=== PATIENT | female | born 1975 | race Caucasian/White ===

== ENCOUNTER → 2016-03-17 | Outpatient (CLI) | payer BC ==
--- NOTE | 2016-03-17 11:08 | MM ---
Reason for exam: clinical finding. Last mammogram was performed 1 year and 3 months ago. Physical Findings: Nurse did not find any significant physical abnormalities on exam. MG Diagnostic Mammo w CAD CHERELLE Bilateral CC and MLO view(s) were taken. Prior study comparison: December 23, 2014, bilateral MG screening mammo w CAD. July 21, 2013, bilateral MG screening mammo w CAD. There are scattered fibroglandular densities. There is no discrete abnormality including area of concern. Stable asymmetry in the upper outer right breast. No significant new findings when compared with previous films. These results were verbally communicated with the patient and result sheet given to the patient on 03/17/16. ASSESSMENT: Benign, BI-RAD 2 RECOMMENDATION: Routine screening mammogram of both breasts in 1 year. Manage patient on a clinical basis.
== END ==
LOC: RADMAMWWP 10:18
PROVIDERS: ATTEND Internal Medicine
DX: N63 Unspecified lump in breast (principal)

== ENCOUNTER → 2018-09-24 | Outpatient (CLI) | payer BC ==
[2018-09-24 10:21] VITALS: BP 126/83; PULSE 69; RESP 18; TEMP 98.2; BMI 45.5
--- NOTE | 2018-09-24 11:22 | P.HPOB ---
History of Present Illness H&P Date: 09/24/18 Chief Complaint: The patient is here for her routine gynecologic exam and ma mmogram. This is a 43-year-old G3 PIII with an LMP of 08/22/2018. The patient's 's status post vasectomy. The patient states she had the gynecologic exam with pelvic exam was done at Dr. Piper's office about year ago. She was told she had a positive HPV test. She was advised to have this repeated in 6 months. She is uncertain as to the results of the Pap smear testing which she believes was done. She is otherwise without gynecologic complaints. She states her only sexual partner has been her and she has been since 1991. She does not believe there is any chance that he has been unfaithful. She would like to be retested for HPV. Menses are regular every month. Review of Systems The patient's weight has been stable over the last year. She denies respiratory, cardiac, or G.I. problems. Past Medical History Past Medical History: No Reported History, Thyroid Disorder Additional Past Medical History / Comment(s): Hypothyroidism and water retention. 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 She has no other history of STDs. History of Any Multi-Drug Resistant Organisms: None Reported Past Surgical History: Cholecystectomy, Orthopedic Surgery Additional Past Surgical History / Comment(s): Knee surgery. 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 - Past Family History Mother Family Medical History: Diabetes Mellitus Additional Family Medical History / Comment(s): Maternal grandfather had diabetes. Medications and Allergies Home Medications Medication Instructions Recorded Confirmed Type Hydrochlorothiazide [Hydrodiuril] 25 mg PO DAILY 06/08/14 09/24/18 History Biotin 10,000 mcg PO DAILY 09/24/18 09/24/18 History Multivitamin [Multivitamins Adult 1 each PO DAILY 09/24/18 09/24/18 History Gummies] Thyroid, Pork [[place] Thyroid] 30 mg PO DAILY 09/24/18 09/24/18 History Allergies Allergy/AdvReac Type Severity Reaction Status Date / Time Penicillins Allergy Anaphylaxis Unverified 09/24/18 10:14 Exam Vital Signs Temp Pulse Resp BP Pulse Ox 09/24/18 10:15 98.2 F 69 18 126/83 97 Intake and Output 09/23/18 09/24/18 09/24/18 22:59 06:59 14:59 Other: Weight 127.913 kg Height 5'6", weight 282 pounds, BMI 45.5. This is a well-developed well-nourished obese white female who is alert and oriented times 3 in no acute distress. HEENT: Within normal limits. NECK: Supple without mass or thyromegaly. CHEST AND LUNGS: Clear to auscultation. HEART: Regular rate and rhythm. BREASTS: Are without mass or discharge. AXILLARY EXAM: Negative for adenopathy. BACK: Negative for CVA tenderness. ABDOMEN: Soft, obese, nontender, without palpable masses. PELVIC EXAM: Normal external genitalia. Cervix and vagina appear normal. There is no unusual discharge. There is no evidence of prolapse. The uterus is midposition, nongravid size and nontender. There are no palpable adnexal masses or tenderness. Bimanual examination is somewhat limited secondary to her size. RECTAL EXAM: refused by the patient. EXTREMITIES: Nontender. IMPRESSION: 1. 43-year-old female with normal gynecologic exam. 2. Previous history of positive HPV testing in the last year. 3. Incomplete database. I was unable to obtain her last Pap smear and HPV test results from Dr. Piper's office because the telephone lines were down and we have gotten the constant busy signal. PLAN: 1. Pap smear co-test was obtained. We will continue to try to get her last Pap smear and HPV test results from Dr. Piper's office. If her last Pap smear was one year ago and co-test was performed with normal cytology and positive high- risk HPV, the appropriate follow-up would be to repeat this after one year. If I find out that the cytology was ASCUS or greater, she may need a colposcopic examination regardless of today's finding. 2. Self breast awareness was discussed with the patient. 3. Greening mammogram will be done today. 4. She was advised to return in one year for her annual well woman exam.
--- NOTE | 2018-09-25 12:17 | MM ---
Reason for exam: screening (asymptomatic). Last mammogram was performed 2 years and 6 months ago. Physical Findings: A clinical breast exam by your physician is recommended on an annual basis and results should be correlated with mammographic findings. MG Screening Mammo w CAD Bilateral CC and MLO view(s) were taken. Prior study comparison: March 17, 2016, bilateral MG diagnostic mammo w CAD CHERELLE. December 23, 2014, bilateral MG screening mammo w CAD. There are scattered fibroglandular densities. There is chronic nodularity in the left breast. There is no discrete abnormality. ASSESSMENT: Negative, BI-RAD 1 RECOMMENDATION: Routine screening mammogram of both breasts in 1 year.
== END | disposition home or self-care (01) ==
LOC: WWCWWP 09:52
PROVIDERS: ATTEND Obstetrics & Gynecology
DX: Z12.31 Encounter for screening mammogram for malignant neoplasm of breast (principal)
CPT/HCPCS: 77067

== ENCOUNTER 2019-11-09 00:08 | Emergency (ER) | payer BC ==
[2019-11-09 00:17] VITALS: BP 155/85; PULSE 94; RESP 16; TEMP 97.9
--- NOTE | 2019-11-09 01:05 | ED ---
Abdominal Pain HPI - General Chief Complaint: Abdominal Pain Stated Complaint: LT flank pain/abdominal pain Time Seen by Provider: 11/09/19 00:34 Source: patient Mode of arrival: ambulatory Limitations: no limitations - History of Present Illness Complaint: abdominal pain Onset/Timin -: month(s) Location: [facility] Radiation: L flank Migration to: no migration Severity: severe Quality: cramping, sharp Consistency: intermittent Improves With: nothing Worsens With: eating, other (palpation) Associated Symptoms: denies other symptoms - Related Data Home Medications Medication Instructions Recorded Confirmed hydroCHLOROthiazide [Hydrodiuril] 25 mg PO DAILY 06/08/14 09/24/18 Biotin 10,000 mcg PO DAILY 09/24/18 09/24/18 Multivitamin [Multivitamins Adult 1 each PO DAILY 09/24/18 09/24/18 Gummies] Thyroid, Pork [[place] Thyroid] 30 mg PO DAILY 09/24/18 09/24/18 Previous Rx's Medication Instructions Recorded Famotidine [Pepcid] 20 mg PO BID #14 tablet 11/09/19 Allergies Allergy/AdvReac Type Severity Reaction Status Date / Time Penicillins Allergy Anaphylaxis Verified 11/09/19 00:17 Review of Systems ROS Statement: Those systems with pertinent positive or pertinent negative responses have been documented in the HPI. ROS Other: All systems not noted in ROS Statement are negative. Constitutional: Denies: fever, chills Respiratory: Denies: cough, dyspnea Cardiovascular: Denies: chest pain, palpitations Gastrointestinal: Reports: as per HPI, abdominal pain, nausea, diarrhea. Denies: vomiting, constipation, melena, hematochezia Genitourinary: Denies: dysuria, frequency, hematuria Musculoskeletal: Reports: as per HPI, back pain Skin: Denies: rash Neurological: Denies: headache, weakness Past Medical History Past Medical History: Thyroid Disorder Additional Past Medical History / Comment(s): water retention. 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 She has no other history of STDs. History of Any Multi-Drug Resistant Organisms: None Reported Past Surgical History: Cholecystectomy, Orthopedic Surgery Additional Past Surgical History / Comment(s): Knee surgery. Past Psychological History: No Psychological Hx Reported Smoking Status: Current every day smoker Past Alcohol Use History: None Reported Past Drug Use History: None Reported - Past Family History Mother Family Medical History: Diabetes Mellitus Additional Family Medical History / Comment(s): Maternal grandfather had diabetes. General Exam Limitations: no limitations General appearance: alert, in no apparent distress Head exam: Present: atraumatic, normocephalic Eye exam: Present: normal appearance. Absent: scleral icterus, conjunctival injection Respiratory exam: Present: normal lung sounds bilaterally. Absent: respiratory distress, wheezes, rales, rhonchi, stridor Cardiovascular Exam: Present: regular rate, normal rhythm, normal heart sounds. Absent: systolic murmur, diastolic murmur, rubs, gallop GI/Abdominal exam: Present: soft, tenderness, normal bowel sounds. Absent: distended, guarding, rebound, rigid, mass, pulsatile mass, hernia Extremities exam: Present: normal inspection, normal capillary refill. Absent: pedal edema, calf tenderness Back exam: Present: normal inspection. Absent: CVA tenderness (R), CVA tenderness (L) Neurological exam: Present: alert Skin exam: Present: warm, dry, intact, normal color. Absent: rash Course Vital Signs 11/09/19 00:13 Temperature 97.9 F Pulse Rate 94 Respiratory 16 Rate Blood Pressure 155/85 O2 Sat by Pulse 100 Oximetry Medical Decision Making - Lab Data Result diagrams: 11/09/19 01:31 11/09/19 01:31 Lab Results 11/09/19 11/09/19 11/09/19 Range/Units 01:31 01:31 01:31 WBC 10.8 H (3.8-10.6) k/uL RBC 4.85 (3.80-5.40) m/uL Hgb 14.8 (11.4-16.0) gm/dL Hct 44.8 (34.0-46.0) % MCV 92.5 (80.0-100.0) fL MCH 30.5 (25.0-35.0) pg MCHC 33.0 (31.0-37.0) g/dL RDW 12.6 (11.5-15.5) % Plt Count 259 (150-450) k/uL Neutrophils % 56 % Lymphocytes % 32 % Monocytes % 6 % Eosinophils % 2 % Basophils % 1 % Neutrophils # 6.1 (1.3-7.7) k/uL Lymphocytes # 3.4 (1.0-4.8) k/uL Monocytes # 0.6 (0-1.0) k/uL Eosinophils # 0.2 (0-0.7) k/uL Basophils # 0.1 (0-0.2) k/uL Sodium 136 L (137-145) mmol/L Potassium 3.7 (3.5-5.1) mmol/L Chloride 105 (98-107) mmol/L Carbon Dioxide 26 (22-30) mmol/L Anion Gap 5 mmol/L BUN 20 H (7-17) mg/dL Creatinine 0.69 (0.52-1.04) mg/dL Est GFR (CKD-EPI)AfAm >90 (>60 ml/min/1.73 sqM) Est GFR (CKD-EPI)NonAf >90 (>60 ml/min/1.73 sqM) Glucose 103 H (74-99) mg/dL Plasma Lactic Acid Tam (0.7-2.0) mmol/L Calcium 10.4 H (8.4-10.2) mg/dL Total Bilirubin 0.3 (0.2-1.3) mg/dL AST 23 (14-36) U/L ALT 28 (4-34) U/L Alkaline Phosphatase 131 H (38-126) U/L Total Protein 6.3 (6.3-8.2) g/dL Albumin 3.6 (3.5-5.0) g/dL Amylase <30 L (30-110) U/L Lipase 68 (23-300) U/L Urine Color Yellow Urine Appearance Clear (Clear) Urine pH 5.5 (5.0-8.0) Ur Specific [place] 1.028 (1.001-1.035) Urine Protein Negative (Negative) Urine Glucose (UA) Negative (Negative) Urine Ketones Negative (Negative) Urine Blood Negative (Negative) Urine Nitrite Negative (Negative) Urine Bilirubin Negative (Negative) Urine Urobilinogen <2.0 (<2.0) mg/dL Ur Leukocyte Esterase Negative (Negative) 11/09/19 Range/Units 01:31 WBC (3.8-10.6) k/uL RBC (3.80-5.40) m/uL Hgb (11.4-16.0) gm/dL Hct (34.0-46.0) % MCV (80.0-100.0) fL MCH (25.0-35.0) pg MCHC (31.0-37.0) g/dL RDW (11.5-15.5) % Plt Count (150-450) k/uL Neutrophils % % Lymphocytes % % Monocytes % % Eosinophils % % Basophils % % Neutrophils # (1.3-7.7) k/uL Lymphocytes # (1.0-4.8) k/uL Monocytes # (0-1.0) k/uL Eosinophils # (0-0.7) k/uL Basophils # (0-0.2) k/uL Sodium (137-145) mmol/L Potassium (3.5-5.1) mmol/L Chloride (98-107) mmol/L Carbon Dioxide (22-30) mmol/L Anion Gap mmol/L BUN (7-17) mg/dL Creatinine (0.52-1.04) mg/dL Est GFR (CKD-EPI)AfAm (>60 ml/min/1.73 sqM) Est GFR (CKD-EPI)NonAf (>60 ml/min/1.73 sqM) Glucose (74-99) mg/dL Plasma Lactic Acid Tam 1.2 (0.7-2.0) mmol/L Calcium (8.4-10.2) mg/dL Total Bilirubin (0.2-1.3) mg/dL AST (14-36) U/L ALT (4-34) U/L Alkaline Phosphatase (38-126) U/L Total Protein (6.3-8.2) g/dL Albumin (3.5-5.0) g/dL Amylase (30-110) U/L Lipase (23-300) U/L Urine Color Urine Appearance (Clear) Urine pH (5.0-8.0) Ur Specific [place] (1.001-1.035) Urine Protein (Negative) Urine Glucose (UA) (Negative) Urine Ketones (Negative) Urine Blood (Negative) Urine Nitrite (Negative) Urine Bilirubin (Negative) Urine Urobilinogen (<2.0) mg/dL Ur Leukocyte Esterase (Negative) Disposition Clinical Impression: Abdominal pain Disposition: HOME SELF-CARE Condition: Good Instructions (If sedation given, give patient instructions): Abdominal Pain (ED) Prescriptions: Famotidine [Pepcid] 20 mg PO BID #14 tablet Is patient prescribed a controlled substance at d/c from ED?: No Referrals: Jei Piper MD [Primary Care Provider] - 1-2 days
[2019-11-09 01:42] LABS: Basophils # (A) 0.1 k/uL (0-0.2); Basophils % (A) 1 %; Eosinophils # (A) 0.2 k/uL (0-0.7); Eosinophils % (A) 2 %; HCT 44.8 % (34.0-46.0); HGB 14.8 gm/dL (11.4-16.0); Lymphocytes # (A) 3.4 k/uL (1.0-4.8); Lymphocytes % (A) 32 %; MCH 30.5 pg (25.0-35.0); MCV 92.5 fL (80.0-100.0); Mean Platelet Volume 7.6; Monocytes # (A) 0.6 k/uL (0-1.0); Monocytes % (A) 6 %; Neutrophils # (A) 6.1 k/uL (1.3-7.7); Neutrophils % (A) 56 %; Platelet Count 259 k/uL (150-450); RBC 4.85 m/uL (3.80-5.40); RDW 12.6 % (11.5-15.5); WBC 10.8 k/uL (3.8-10.6)
[2019-11-09 01:53] LABS: Appearance,Urine Clear (Clear); Bilirubin,Urine Negative (Negative); Blood,Urine Negative (Negative); Color,Urine Yellow; Glucose,Urine (UA) Negative (Negative); Ketones,Urine Negative (Negative); Leukocyte Esterase,Urine Negative (Negative); Nitrite,Urine Negative (Negative); PH, Urine 5.5 (5.0-8.0); Protein,Urine Negative (Negative); Specific Gravity,Urine 1.028 (1.001-1.035); Urobilinogen,Urine <2.0 mg/dL (<2.0)
--- NOTE | 2019-11-09 02:07 | CT ---
EXAMINATION TYPE: CT abdomen pelvis wo con DATE OF EXAM: 11/09/2019 COMPARISON: None HISTORY: left flank pain ,hx of cholecystectomy CT DLP: 2086 mGycm Automated exposure control for dose reduction was used. Lung bases are clear. There is no pleural effusion. Heart appears fairly normal. There is no pericard ial effusion. Stomach is intact. Liver spleen pancreas appear normal. There are clips from cholecyste ctomy. The bile ducts are not dilated. There is no adrenal mass. Kidneys have normal size. There is no hydronephrosis. Ureters are not dilat ed. There is no retroperitoneal adenopathy. Bladder is almost empty. Uterus is anteverted. There is n o free fluid in the pelvis. There is no inguinal hernia. There is no free fluid in the pelvis. There is no sign of a pelvic mass. The appendix is inferior and appears normal. There are a few pericecal lymph nodes measuring less than 1 cm. There is no mesenteric edema. There is no ascites or free air. There is no bowel obstruction. There i s L5 spondylolysis. There is no significant spondylolisthesis. There is no lumbar compression fractur e. Bony pelvis is intact. The hip joints are intact. There is no evidence of hip dysplasia. There is broad-based umbilical 3 x 2 cm hernia that contains fat. There are a few colonic diverticula without sign of diverticulitis. IMPRESSION: No sign of acute abdomen and pelvis. Umbilical hernia contains fat. Normal appendix. I do not see a c ause for left upper quadrant pain.
[2019-11-09 02:09] LABS: ALT 28 U/L (4-34); AST 23 U/L (14-36); African American GFR (CKD) >90 (>60 ml/min/1.73 sqM); Albumin 3.6 g/dL (3.5-5.0); Alkaline Phosphatase 131 U/L (38-126); Amylase <30 U/L (30-110); Anion Gap 5 mmol/L; Blood Urea Nitrogen 20 mg/dL (7-17); Calcium 10.4 mg/dL (8.4-10.2); Carbon Dioxide 26 mmol/L (22-30); Chloride 105 mmol/L (98-107); Glucose 103 mg/dL (74-99); Non-African American GFR(CKD) >90 (>60 ml/min/1.73 sqM); Potassium 3.7 mmol/L (3.5-5.1); Sodium 136 mmol/L (137-145); Total Bilirubin 0.3 mg/dL (0.2-1.3); Total Protein 6.3 g/dL (6.3-8.2)
[2019-11-09] MEDS ORDERED: DICYCLOMINE 20 MG TAB PO STA (02:16)
[2019-11-09] MEDS ORDERED: MAG HYDROX/AL HYDROX/SIMETH 30 ML, HYOSCYAMINE ELIXIR 10 ML, LIDOCAINE VISCOUS 2% 10 ML PO STA ×3 (02:16)
== END 2019-11-09 03:10 | disposition home or self-care (01) ==
LOC: EC 00:08
DX: R10.11 Right upper quadrant pain (principal); R11.0 Nausea; R19.7 Diarrhea, unspecified; E07.9 Disorder of thyroid, unspecified; F17.200 Nicotine dependence, unspecified, uncomplicated; Z79.890 Hormone replacement therapy; Z88.0 Allergy status to penicillin; Z90.49 Acquired absence of other specified parts of digestive tract
CPT/HCPCS: 36415; 74176; 80053; 81003; 82150; 83605; 83690; 85025; 99284

== ENCOUNTER → 2019-12-09 | Outpatient (CLI) | payer BC ==
[2019-12-09 12:57] VITALS: BP 119/85; PULSE 77; RESP 16; TEMP 98.2
--- NOTE | 2019-12-09 13:52 | P.HPOB ---
History of Present Illness H&P Date: 12/09/19 Chief Complaint: The patient is here for her routine gynecologic exam and ma mmogram. This is a 44-year-old with an LMP of 11/24/2019. The patient is without gynecologic complaints. Menses are regular every month. She was in the emergency room about 1 month ago because of some upper abdominal pain. CT scan of the abdomen and pelvis was unremarkable. Review of Systems The patient has gained 11 pounds over the last year. She denies respiratory, cardiac, or G.I. problems. Past Medical History Past Medical History: Thyroid Disorder Additional Past Medical History / Comment(s): Hypothyroidism and water retention. 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 History of Any Multi-Drug Resistant Organisms: None Reported Past Surgical History: Cholecystectomy, Orthopedic Surgery Additional Past Surgical History / Comment(s): Knee surgery. 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 - Past Family History Mother Family Medical History: Diabetes Mellitus Additional Family Medical History / Comment(s): Maternal grandfather had diabetes. Medications and Allergies Home Medications Medication Instructions Recorded Confirmed Type hydroCHLOROthiazide [Hydrodiuril] 25 mg PO DAILY 06/08/14 12/09/19 History Biotin 10,000 mcg PO DAILY 09/24/18 12/09/19 History Multivitamin [Multivitamins Adult 1 each PO DAILY 09/24/18 12/09/19 History Gummies] Thyroid, Pork [[place] Thyroid] 30 mg PO DAILY 09/24/18 12/09/19 History Famotidine [Pepcid] 20 mg PO BID #14 tablet 11/09/19 12/09/19 Rx Magnesium 200 mg PO DAILY 12/09/19 12/09/19 History Allergies Allergy/AdvReac Type Severity Reaction Status Date / Time Penicillins Allergy Anaphylaxis Verified 12/09/19 12:59 Exam Vital Signs Temp Pulse Resp BP Pulse Ox 12/09/19 12:50 98.2 F 77 16 119/85 94 L Intake and Output 12/08/19 12/09/19 12/09/19 22:59 06:59 14:59 Other: Weight 132.903 kg Height 5 feet 5 inches, weight 293 pounds, BMI 48.8. This is a well-developed well-nourished heavyset white female who is alert and oriented times 3 in no acute distress. HEENT: Within normal limits. NECK: Supple without mass or thyromegaly. CHEST AND LUNGS: Clear to auscultation. HEART: Regular rate and rhythm. BREASTS: Are without mass or discharge. AXILLARY EXAM: Negative for adenopathy. BACK: Negative for CVA tenderness. ABDOMEN: Soft, obese, nontender, without palpable masses. PELVIC EXAM: Normal external genitalia. Cervix and vagina appear normal. There is no unusual discharge. There is no evidence of prolapse. The uterus is midposition, nongravid size and nontender. There are no palpable adnexal masses or tenderness. Bimanual examination is somewhat limited secondary to her size. RECTAL EXAM: negative for mass or tenderness and is negative for occult blood. EXTREMITIES: Nontender. IMPRESSION: 1. 44-year-old premenopausal female with normal gynecologic exam. 2. History of previous ASCUS Pap smear in 2019 with negative high-risk HPV testing. PLAN: 1. Pap smear was deferred. We will plan on repeating the Pap smear cytology with high risk HPV testing in 1 year. 2. Self breast awareness was discussed with the patient. 3. Screening mammogram will be done today. 4. I recommended that she try to quit smoking. She has been actively trying to decrease the amount she smokes. We have discussed many reasons why this is important to try to quit altogether. 5. We have discussed the HPV vaccination series for her children. She will consider this but generally is against vaccinations. 6. She was advised to return in one year for her annual well woman exam.
--- NOTE | 2019-12-10 11:47 | MM ---
Reason for exam: screening (asymptomatic). Last mammogram was performed 1 year and 2 months ago. Physical Findings: A clinical breast exam by your physician is recommended on an annual basis and results should be correlated with mammographic findings. MG 3D Screening Mammo W/Cad Bilateral CC and MLO view(s) were taken. Prior study comparison: September 24, 2018, bilateral MG screening mammo w CAD. March 17, 2016, bilateral MG diagnostic mammo w CAD [facility]ERELLE. The breast tissue is almost entirely fat. No significant changes when compared with prior studies. ASSESSMENT: Benign, BI-RAD 2 RECOMMENDATION: Routine screening mammogram of both breasts in 1 year.
== END | disposition home or self-care (01) ==
LOC: WWCWWP 12:42
PROVIDERS: ATTEND Obstetrics & Gynecology
DX: Z12.31 Encounter for screening mammogram for malignant neoplasm of breast (principal)
CPT/HCPCS: 77063; 77067

== ENCOUNTER 2020-02-25 07:50 | Day surgery (SDC) | payer BC ==
[2020-02-02 14:55] VITALS: BMI 47.7
[~2020-02-25 07:50] MED LIST: LACTATED RINGERS 1,000 ML IV SCH; LIDOCAINE 1% (10MG/ML) FOR IV START INTRADERMA PRN
[2020-02-25 08:21] VITALS: RESP 16; TEMP 98.5
[2020-02-25] MEDS ORDERED: MIDAZOLAM 2 MG/2 ML VIAL ONE (09:11)
[2020-02-25] MEDS ORDERED: fentaNYL (PF) 50 MCG/ML 2 ML AMP ONE (09:11)
[2020-02-25] MEDS ORDERED: LIDOCAINE 1% INJ 10MG/ML (20 ML MDV) ONE (09:11)
[2020-02-25] MEDS ORDERED: PROPOFOL 10 MG/ML 20 ML VIAL IV ONE (09:11)
--- NOTE | 2020-02-25 09:40 | P.PCN ---
Date of Procedure: 02/25/20 Procedure(s) Performed: Brief history: Patient is a pleasant scheduled for an elective upper endoscopy as well as colonoscopy as a part of evaluation of left-sided abdominal pain for the last few months duration. She feels the foods. She also has diarrhea with biopsies and Sherrie ink 80-70 which are loose to watery in consistency. Procedure performed: Esophagogastroduodenoscopy biopsy Colonoscopy with biopsy and snare polypectomy Preoperative diagnosis: Left sided abdominal pain Chronic diarrhea Anesthesia: MAC Procedure: After informed consent was obtained from the patient was brought into the endoscopy unit and IV sedation was administered by anesthesia under continuous monitoring. Initially upper endoscopy was done. The Olympus GF 160 video endoscope was inserted inserted into the mouth and esophagus intubated without any difficulty and was gradually advanced into the stomach and duodenum and carefully examined. Biopsies were done from the duodenum to rule out celiac disease. The bulb and second part of the duodenum appeared normal. The scope was then withdrawn into the stomach adequately insufflated with air and upon careful examination the antrum had patchy areas of erythema with mottling of the mucosa and biopsies were done from this area. The body, cardia and fundus appeared normal. The scope was then withdrawn into the esophagus. The GE junction was located at 40 cm to the incisors. It appeared regular with no erythema erosions or ulcerations. Rest of the esophagus appeared normal. Patient tolerated the procedure well. At this time the patient continued to remain sedation. Initial digital rectal examination was normal. Olympus CF 160 video colonoscope was then inserted into the rectum and gradually advanced to the cecum without any difficulty. Careful examination was performed as the scope was gradually being withdrawn. The prep was excellent. The cecum, ascending colon, transverse colon, descending colon, sigmoid colon and rectum appeared normal. In the rectum; there was a 5 mm polyp that was removed by snare polypectomy.. Biopsy were done from ascending and descending colon to rule out microscopic/collagenous colitis Retroflexion was performed in the rectum and no lesions were noted. Patient tolerated the procedure well. Impression: 1. Upper Endoscopy revealed mild antral gastritis. 2. Colonoscopy revealed a 5 mm rectosigmoid polyp status post polypectomy. Rest of the colon appeared normal. Recommendations: Findings of this examination were discussed with the patient as well as a family. She was advised to follow with the biopsy results. She'll be seen in office in 2-3 weeks.
[2020-02-25 10:16] VITALS: BP 132/77; PULSE 62
== END 2020-02-25 10:44 ==
LOC: ORWHC2ENDO 07:50
PROVIDERS: ATTEND Internal Medicine Gastroenterology
DX: K63.5 Polyp of colon (principal); K52.9 Noninfective gastroenteritis and colitis, unspecified; K29.50 Unspecified chronic gastritis without bleeding; A04.8 Other specified bacterial intestinal infections; I10 Essential (primary) hypertension; G47.33 Obstructive sleep apnea (adult) (pediatric); E66.8 Other obesity; Z68.42 Body mass index [BMI] 45.0-49.9, adult; K21.9 Gastro-esophageal reflux disease without esophagitis; Z90.49 Acquired absence of other specified parts of digestive tract; Z98.890 Other specified postprocedural states; Z79.890 Hormone replacement therapy; Z79.899 Other long term (current) drug therapy; Z88.0 Allergy status to penicillin
CPT/HCPCS: 81025; 88305; 88342; 45380; 45385; 43239; J2250; J2001; J3010; J2704

== ENCOUNTER 2021-01-27 00:19 | Emergency (ER) | payer BC ==
[2021-01-27] MEDS ORDERED: ONDANSETRON 4 MG/2 ML VIAL IVP STA (00:37)
[2021-01-27] MEDS ORDERED: DEXAMETHASONE SOD PHOSPHATE 10 MG/ML 1 ML VIAL IVP STA (00:37)
--- NOTE | 2021-01-27 01:13 | ED ---
General Adult HPI - General Chief complaint: Weakness Stated complaint: COVID+ Source: patient, EMS, RN notes reviewed Mode of arrival: EMS Limitations: no limitations - History of Present Illness Initial comments: Patient is a 45-year-old female that presents to the emergency department complaining of Covid-positive wanting monoclonal antibodies. Patient notes that she is been sick since the and tested positive on the . Patient was otherwise well-appearing vital signs within normal limits. Patient denied any chest pain headache diarrhea constipation fever fatigue chills. - Related Data Home Medications Medication Instructions Recorded Confirmed hydroCHLOROthiazide [Hydrodiuril] 25 mg PO DAILY 06/08/14 02/24/20 Biotin 10,000 mcg PO DAILY 09/24/18 02/24/20 Multivitamin [Multivitamins Adult 1 each PO DAILY 09/24/18 02/24/20 Gummies] Thyroid, Pork [[place] Thyroid] 30 mg PO DAILY 09/24/18 02/24/20 Magnesium 200 mg PO DAILY 12/09/19 02/24/20 Ascorbic Acid [Vitamin C] 500 mg PO DAILY 02/02/20 02/24/20 Elderberry Fruit and Flower [Black 1 each PO MOWETHSA 02/02/20 02/24/20 Elderberry 575 mg Cap] Vitamin B Complex 1 each PO DAILY 02/02/20 02/24/20 Vitamin D (Unknown Dose) 1 tab PO DAILY 02/24/20 Previous Rx's Medication Instructions Recorded Famotidine [Pepcid] 20 mg PO BID #14 tablet 11/09/19 Ondansetron Odt [Zofran Odt] 4 mg PO Q8HR PRN 10 Days #30 tab 01/27/21 Allergies Allergy/AdvReac Type Severity Reaction Status Date / Time Penicillins Allergy Anaphylaxis Verified 01/27/21 00:31 Review of Systems ROS Statement: Those systems with pertinent positive or pertinent negative responses have been documented in the HPI. ROS Other: All systems not noted in ROS Statement are negative. Past Medical History Past Medical History: Thyroid Disorder Additional Past Medical History / Comment(s): Hypothyroidism and water retention. lt side abdominal pain History of Any Multi-Drug Resistant Organisms: None Reported Past Surgical History: Cholecystectomy, Orthopedic Surgery Additional Past Surgical History / Comment(s): Knee surgery. Past Anesthesia/Blood Transfusion Reactions: Previous Problems w/ Anesthesia, Motion Sickness, Postoperative Nausea & Vomiting (PONV) Additional Past Anesthesia/Blood Transfusion Reaction / Comment(s): states she quinn and is fearful after anesthesia. Past Psychological History: Anxiety Smoking Status: Current every day smoker Past Alcohol Use History: None Reported Past Drug Use History: None Reported - Past Family History Mother Family Medical History: Diabetes Mellitus Additional Family Medical History / Comment(s): Maternal grandfather had diabetes. General Exam Limitations: no limitations General appearance: alert, in no apparent distress, obese Head exam: Present: atraumatic, normocephalic, normal inspection Eye exam: Present: normal appearance, PERRL, EOMI. Absent: scleral icterus, conjunctival injection, periorbital swelling ENT exam: Present: normal exam, mucous membranes moist Neck exam: Present: normal inspection Respiratory exam: Present: normal lung sounds bilaterally. Absent: respiratory distress, wheezes, rales, rhonchi, stridor Cardiovascular Exam: Present: regular rate, normal rhythm, normal heart sounds. Absent: systolic murmur, diastolic murmur, rubs, gallop, clicks Extremities exam: Present: normal inspection, full ROM, normal capillary refill. Absent: tenderness, pedal edema, joint swelling, calf tenderness Neurological exam: Present: alert, oriented X3 Psychiatric exam: Present: normal affect, normal mood Skin exam: Present: warm, dry, intact, normal color. Absent: rash Course Vital Signs 01/27/21 00:26 Temperature 98.4 F Pulse Rate 82 Respiratory 16 Rate Blood Pressure 124/81 O2 Sat by Pulse 98 Oximetry Medical Decision Making - Medical Decision Making 45 old female Covid-positive requesting monoclonal antibodies. Patient does meet criteria for monoclonal antibodies and agrees to discharge home after infusion. Vital signs are stable and within normal limits. Patient is afebrile. case discussed with Dr. Burrows - EKG Data -: EKG Interpreted by Oh EKG shows normal: sinus rhythm Rate: normal EKG Comments: Ventricular rate 79 bpm, AR interval 212 ms, QRS duration 84 ms, QTC 444 ms, PRT axes 60/53/32. Sinus rhythm with first-degree AV block, low voltage QRS cannot rule out anterior infarct age undetermined, abnormal ECG. Disposition Clinical Impression: COVID Disposition: HOME SELF-CARE Condition: Stable Instructions (If sedation given, give patient instructions): Coronavirus Disease 2019 (COVID-19) Additional Instructions: Please return to the Emergency Department if symptoms worsen or any other concerns. Follow-up with primary care in 1-2 days. Take Zofran as prescribed. Quarantine per CDC guidelines. Prescriptions: Ondansetron Odt [Zofran Odt] 4 mg PO Q8HR PRN 10 Days #30 tab PRN Reason: Nausea Is patient prescribed a controlled substance at d/c from ED?: No Referrals: Jie Piper MD [Primary Care Provider] - 1-2 days Time of Disposition: 01:15
[2021-01-27] MEDS ORDERED: SODIUM CHLORIDE 0.9% 50 ML IVPB ONE (01:15)
[2021-01-27] MEDS ORDERED: CASIRIVIMAB (REGN10933) (EUA) 600 MG, IMDEVIMAB (REGN10987) (EUA) 600 MG in SODIUM CHLO... IVPB ONE (01:30)
[2021-01-27 03:17] VITALS: BP 138/79; PULSE 92; RESP 18; TEMP 99
== END 2021-01-27 03:17 | disposition home or self-care (01) ==
LOC: EC 00:19
DX: U07.1 COVID-19 (principal); E03.9 Hypothyroidism, unspecified; F41.9 Anxiety disorder, unspecified; F17.200 Nicotine dependence, unspecified, uncomplicated; Z79.899 Other long term (current) drug therapy
CPT/HCPCS: 99283; 96374; J1100; Q0243; 93005

== ENCOUNTER → 2021-03-15 | Outpatient (CLI) | payer BC ==
[2021-03-15 13:08] VITALS: BP 131/83; PULSE 88; RESP 18; TEMP 97.6
--- NOTE | 2021-03-15 14:18 | P.HPOB ---
History of Present Illness H&P Date: 03/15/21 Chief Complaint: The patient is here for her routine gynecologic exam. This is a 45-year-old with an LMP of 03/10/2021. Her is status post vasectomy. The patient states her menstrual periods have been regular every month. She has been having some hot flashes. Last month she had a UTI which was treated by her PCP. She believes this was after sitting in a hot tub. She states the UTI was her second one and her first one was also after sitting in the hot tub in 2019. In 2019, she thinks her PCP's office told her that it was some type of STD. She is uncertain as to the name of this STD. She is otherwise without complaints. Review of Systems The patient has lost 7 pounds over the last year. She denies respiratory, cardiac, or G.I. problems. Past Medical History Past Medical History: Thyroid Disorder Additional Past Medical History / Comment(s): Hypothyroidism and water retention. 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 History of Any Multi-Drug Resistant Organisms: None Reported Past Surgical History: Cholecystectomy, Orthopedic Surgery Additional Past Surgical History / Comment(s): Knee surgery. Colonoscopy with upper endoscopy in 2019. Past Anesthesia/Blood Transfusion Reactions: Previous Problems w/ Anesthesia, Motion Sickness, Postoperative Nausea & Vomiting (PONV) Additional Past Anesthesia/Blood Transfusion Reaction / Comment(s): states she quinn and is fearful after anesthesia. Past Psychological History: Anxiety Smoking Status: Former smoker Past Alcohol Use History: None Reported Additional Past Alcohol Use History / Comment(s): smoker 26 years 14cig/day. Quit smoking in February 2021. 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 She has 2 adopted children. - Past Family History Mother Family Medical History: Diabetes Mellitus Additional Family Medical History / Comment(s): Maternal grandfather had diabetes. Medications and Allergies Home Medications Medication Instructions Recorded Confirmed Type hydroCHLOROthiazide [Hydrodiuril] 25 mg PO DAILY 06/08/14 03/15/21 History Biotin 10,000 mcg PO DAILY 09/24/18 03/15/21 History Multivitamin [Multivitamins Adult 1 each PO DAILY 09/24/18 03/15/21 History Gummies] Thyroid, Pork [[place] Thyroid] 30 mg PO DAILY 09/24/18 03/15/21 History Ascorbic Acid [Vitamin C] 500 mg PO DAILY 02/02/20 03/15/21 History Elderberry Fruit and Flower [Black 1 each PO MOWETHSA 02/02/20 03/15/21 History Elderberry 575 mg Cap] Vitamin B Complex 1 each PO DAILY 02/02/20 03/15/21 History Vitamin D (Unknown Dose) 1 tab PO DAILY 02/24/20 03/15/21 History Ondansetron Odt [Zofran Odt] 4 mg PO Q8HR PRN 10 Days #30 tab 01/27/21 03/15/21 Rx Allergies Allergy/AdvReac Type Severity Reaction Status Date / Time amoxicillin Allergy Anaphylaxis Unverified 03/15/21 13:01 ciprofloxacin [From Cipro] Allergy Rash/Hives Unverified 03/15/21 13:01 Penicillins Allergy Anaphylaxis Verified 03/15/21 13:01 Exam Vital Signs Temp Pulse Resp BP Pulse Ox 03/15/21 13:01 97.6 F 88 18 131/83 98 Intake and Output 03/14/21 03/15/21 03/15/21 22:59 06:59 14:59 Other: Weight 129.727 kg Height 5 feet 5 inches, weight 286 pounds, BMI 47.6. This is a well-developed well-nourished obese white female who is alert and oriented times 3 in no acute distress. HEENT: Within normal limits. NECK: Supple without mass or thyromegaly. CHEST AND LUNGS: Clear to auscultation. HEART: Regular rate and rhythm. BREASTS: Are without mass or discharge. AXILLARY EXAM: Negative for adenopathy. BACK: Negative for CVA tenderness. ABDOMEN: Soft, obese, nontender, without palpable masses. PELVIC EXAM: Normal external genitalia. Cervix and vagina appear normal. There is no unusual discharge. There is no evidence of prolapse. The uterus is mid position, nongravid size and nontender. There are no palpable adnexal masses or tenderness. Bimanual examination is somewhat limited secondary to her size. RECTAL EXAM: negative for mass or tenderness and is negative for occult blood. EXTREMITIES: Nontender. IMPRESSION: 1. 45-year-old premenopausal female whose is status post vasectomy, with normal gynecologic exam. 2. History of ASCUS Pap smear in 2019. Pap smear cotest done shortly after the ASCUS Pap smear was negative with a negative high-risk HPV test. The cotest was done prior to having the results to the Pap smear recently done at her PCPs office. This testing will be treated as an ASCUS past with negative high-risk HPV testing. PLAN: 1. Pap smear cotest was performed. 2. Self breast awareness was discussed with the patient. We have also discussed symptoms associated with inflammatory breast cancer. 3. Screening mammogram is scheduled for next month. The order slip was given to the patient for this. 4. Osteoporosis prevention was discussed. I have stressed the importance of adequate calcium, vitamin D and regular exercise. Recommended amounts of calcium and vitamin D were also discussed. 5. We will obtain records from her PCPs office regarding the UTIs in 2019 and 2020. Specifically, we will try to determine if there is some type of STD, as she believes she was told in 2020. 6. She has not received a Covid vaccination. She states she did have over the last year. She understands these CDC still recommends getting a Covid vaccination and she will consider this. 7. She was congratulated on recently quitting smoking. I have stressed the importance of continuing to be a nonsmoker. We have discussed many reasons why this is important. 8. She was advised to return in one year for her annual well woman exam.
== END ==
LOC: WWCWWP 12:52
PROVIDERS: ATTEND Obstetrics & Gynecology
DX: Z01.419 Encounter for gynecological examination (general) (routine) without abnormal findings (principal); E03.9 Hypothyroidism, unspecified; F41.9 Anxiety disorder, unspecified; Z88.0 Allergy status to penicillin; Z88.1 Allergy status to other antibiotic agents; Z87.891 Personal history of nicotine dependence

== ENCOUNTER → 2021-06-10 | Outpatient (CLI) | payer BC ==
--- NOTE | 2021-06-13 11:35 | MM ---
Reason for exam: screening (asymptomatic). Last mammogram was performed 1 year and 6 months ago. Physical Findings: A clinical breast exam by your physician is recommended on an annual basis and results should be correlated with mammographic findings. MG Screening Mammo w CAD Bilateral CC and MLO view(s) were taken. XCCL view(s) were taken of the right breast. Prior study comparison: December 09, 2019, bilateral MG 3d screening mammo w/cad. September 24, 2018, bilateral MG screening mammo w CAD. There are scattered fibroglandular densities. There is chronic nodularity in the right breast. No significant changes when compared with prior studies. ASSESSMENT: Benign, BI-RAD 2 RECOMMENDATION: Routine screening mammogram of both breasts in 1 year.
== END | disposition home or self-care (01) ==
LOC: RADMAMWWP 04-19 13:00
PROVIDERS: ATTEND Internal Medicine
DX: Z12.31 Encounter for screening mammogram for malignant neoplasm of breast (principal)
CPT/HCPCS: 77067

== ENCOUNTER 2021-06-27 11:20 | Emergency (ER) | payer BC ==
--- NOTE | 2021-06-27 13:28 | ED ---
General Adult HPI - General Stated complaint: Bee sting LT wrist Time Seen by Provider: 06/27/21 12:53 Source: patient, RN notes reviewed Limitations: no limitations - History of Present Illness Initial comments: Patient is a pleasant 46-year-old female presenting to the emergency Department with bee sting. Episode occurred 2 days ago. Patient was stung in the left wrist. Patient has had slow increase discomfort since that time. No fevers. No swelling of the tongue or throat or face. No history of similar problems previously. - Related Data Home Medications Medication Instructions Recorded Confirmed hydroCHLOROthiazide [Hydrodiuril] 25 mg PO DAILY 06/08/14 03/15/21 Biotin 10,000 mcg PO DAILY 09/24/18 03/15/21 Multivitamin [Multivitamins Adult 1 each PO DAILY 09/24/18 03/15/21 Gummies] Thyroid, Pork [[place] Thyroid] 30 mg PO DAILY 09/24/18 03/15/21 Ascorbic Acid [Vitamin C] 500 mg PO DAILY 02/02/20 03/15/21 Elderberry Fruit and Flower [Black 1 each PO MOWETHSA 02/02/20 03/15/21 Elderberry 575 mg Cap] Vitamin B Complex 1 each PO DAILY 02/02/20 03/15/21 Vitamin D (Unknown Dose) 1 tab PO DAILY 02/24/20 03/15/21 Previous Rx's Medication Instructions Recorded Ondansetron Odt [Zofran Odt] 4 mg PO Q8HR PRN 10 Days #30 tab 01/27/21 Sulfamethox-Tmp 800-160Mg [Bactrim 1 each PO Q12HR #20 tab 06/27/21 DS 800-160 mg] Allergies Allergy/AdvReac Type Severity Reaction Status Date / Time amoxicillin Allergy Anaphylaxis Unverified 03/15/21 13:01 ciprofloxacin [From Cipro] Allergy Rash/Hives Unverified 03/15/21 13:01 Penicillins Allergy Anaphylaxis Verified 03/15/21 13:01 Review of Systems ROS Statement: Those systems with pertinent positive or pertinent negative responses have been documented in the HPI. ROS Other: All systems not noted in ROS Statement are negative. Constitutional: Denies: fever Eyes: Denies: eye pain ENT: Denies: ear pain Respiratory: Denies: cough Cardiovascular: Denies: chest pain Endocrine: Denies: fatigue Gastrointestinal: Denies: abdominal pain Genitourinary: Denies: dysuria Musculoskeletal: Denies: back pain Skin: Reports: as per HPI, rash Neurological: Denies: headache Past Medical History Past Medical History: Thyroid Disorder Additional Past Medical History / Comment(s): Hypothyroidism and water rete ntion. 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 History of Any Multi-Drug Resistant Organisms: None Reported Past Surgical History: Cholecystectomy, Orthopedic Surgery Additional Past Surgical History / Comment(s): Knee surgery. Colonoscopy with upper endoscopy in 2019. Past Anesthesia/Blood Transfusion Reactions: Previous Problems w/ Anesthesia, Motion Sickness, Postoperative Nausea & Vomiting (PONV) Additional Past Anesthesia/Blood Transfusion Reaction / Comment(s): states she quinn and is fearful after anesthesia. Past Psychological History: Anxiety Smoking Status: Former smoker Past Alcohol Use History: None Reported Additional Past Alcohol Use History / Comment(s): smoker 26 years 14cig/day. Quit smoking in February 2021. Past Drug Use History: None Reported - Past Family History Mother Family Medical History: Diabetes Mellitus Additional Family Medical History / Comment(s): Maternal grandfather had diabetes. General Exam Limitations: no limitations General appearance: alert Head exam: Present: normocephalic Eye exam: Present: normal appearance ENT exam: Present: normal oropharynx Neck exam: Present: normal inspection Respiratory exam: Present: normal lung sounds bilaterally Cardiovascular Exam: Present: regular rate, normal rhythm GI/Abdominal exam: Present: soft. Absent: tenderness Extremities exam: Present: other (Left dorsal ulnar wrist with small puncture, consistent with bee sting, less than 3 mm. There is surrounding erythema approximately 1.5 x 4 cm.) Neurological exam: Present: alert Psychiatric exam: Present: normal affect, normal mood Skin exam: Present: erythema Disposition Clinical Impression: Bee sting Disposition: HOME SELF-CARE Condition: Stable Instructions (If sedation given, give patient instructions): Insect Bite or Sting (ED), Cellulitis (ED) Additional Instructions: Prescription sent to pharmacy. Please follow-up with primary care physician in the next day or 2 for recheck. Return for increased redness, fever, increased pain or swelling, worsening symptoms or other concerns. Inmo-sqa-qloriac antihistamines such as Claritin may be beneficial. Prescriptions: Sulfamethox-Tmp 800-160Mg [Bactrim DS 800-160 mg] 1 each PO Q12HR #20 tab Is patient prescribed a controlled substance at d/c from ED?: No Referrals: Jie Piper MD [Primary Care Provider] - 1-2 days Time of Disposition: 13:25
[2021-06-27 13:40] VITALS: BP 140/73; PULSE 75; RESP 16; TEMP 97.5
== END 2021-06-27 13:46 | disposition home or self-care (01) ==
LOC: EC 11:20
DX: T63.441A Toxic effect of venom of bees, accidental (unintentional), initial encounter (principal); E07.9 Disorder of thyroid, unspecified; F41.9 Anxiety disorder, unspecified; Z90.49 Acquired absence of other specified parts of digestive tract; Z88.0 Allergy status to penicillin; Z88.1 Allergy status to other antibiotic agents; Z87.891 Personal history of nicotine dependence
CPT/HCPCS: 99282

== ENCOUNTER 2021-08-01 01:22 | Emergency (ER) | payer BC ==
[2021-08-01 01:26] VITALS: BP 144/73; PULSE 93; RESP 18; TEMP 98
[2021-08-01] MEDS ORDERED: ENOXAPARIN 40 MG/0.4 ML SYRINGE SQ STA (02:16)
--- NOTE | 2021-08-01 02:17 | ED ---
Extremity Problem HPI - General Chief complaint: Extremity Problem,Nontraumatic Stated complaint: Rt Leg Pain Time Seen by Provider: 08/01/21 01:30 Source: patient, family, RN notes reviewed Mode of arrival: wheelchair Limitations: no limitations - History of Present Illness Initial comments: This is a 46-year-old female who presents to the emergency department for right leg pain. Patient states that for the last week to week and a half she has had pain and bulging in the back of her right calf. She has never had anything like this before. She notes that when she was sitting in a hot bath, the bumps seemed to go away temporarily. This morning she took an 81 mg baby aspirin and she is unsure if this helped or not. Prior to this she had not taken anything for the symptoms. Denies any chest pain, shortness of breath, or history of blood clots. Denies any fevers, chills, sore throat, cough, dyspnea, chest pain, palpitations, abdominal pain, nausea, vomiting, diarrhea, back pain, or headaches. MD Complaint: extremity pain, extremity swelling Onset/Timin -: week(s) Location: right, lower extremity History of Same: No - Related Data Home Medications Medication Instructions Recorded Confirmed hydroCHLOROthiazide [Hydrodiuril] 25 mg PO DAILY 06/08/14 03/15/21 Biotin 10,000 mcg PO DAILY 09/24/18 03/15/21 Multivitamin [Multivitamins Adult 1 each PO DAILY 09/24/18 03/15/21 Gummies] Thyroid, Pork [[place] Thyroid] 30 mg PO DAILY 09/24/18 03/15/21 Ascorbic Acid [Vitamin C] 500 mg PO DAILY 02/02/20 03/15/21 Elderberry Fruit and Flower [Black 1 each PO MOWETHSA 02/02/20 03/15/21 Elderberry 575 mg Cap] Vitamin B Complex 1 each PO DAILY 02/02/20 03/15/21 Vitamin D (Unknown Dose) 1 tab PO DAILY 02/24/20 03/15/21 Previous Rx's Medication Instructions Recorded Ondansetron Odt [Zofran Odt] 4 mg PO Q8HR PRN 10 Days #30 tab 01/27/21 Sulfamethox-Tmp 800-160Mg [Bactrim 1 each PO Q12HR #20 tab 06/27/21 DS 800-160 mg] Allergies Allergy/AdvReac Type Severity Reaction Status Date / Time amoxicillin Allergy Anaphylaxis Verified 08/01/21 01:26 ciprofloxacin [From Cipro] Allergy Rash/Hives Verified 08/01/21 01:26 Penicillins Allergy Anaphylaxis Verified 08/01/21 01:26 Review of Systems ROS Statement: Those systems with pertinent positive or pertinent negative responses have been documented in the HPI. ROS Other: All systems not noted in ROS Statement are negative. Past Medical History Past Medical History: Thyroid Disorder Additional Past Medical History / Comment(s): Hypothyroidism and water retention. 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 History of Any Multi-Drug Resistant Organisms: None Reported Past Surgical History: Cholecystectomy, Orthopedic Surgery Additional Past Surgical History / Comment(s): Knee surgery. Colonoscopy with upper endoscopy in 2019. Past Anesthesia/Blood Transfusion Reactions: Previous Problems w/ Anesthesia, Motion Sickness, Postoperative Nausea & Vomiting (PONV) Additional Past Anesthesia/Blood Transfusion Reaction / Comment(s): states she quinn and is fearful after anesthesia. Past Psychological History: Anxiety Smoking Status: Former smoker Past Alcohol Use History: None Reported Past Drug Use History: None Reported - Past Family History Mother Family Medical History: Diabetes Mellitus Additional Family Medical History / Comment(s): Maternal grandfather had diabetes. General Exam General appearance: alert, in no apparent distress Head exam: Present: atraumatic, normocephalic, normal inspection Respiratory exam: Present: normal lung sounds bilaterally. Absent: respiratory distress, wheezes, rales, rhonchi, stridor Cardiovascular Exam: Present: regular rate, normal rhythm, normal heart sounds. Absent: systolic murmur, diastolic murmur, rubs, gallop, clicks Extremities exam: Present: other (Varicose veins of the lower extremities bilaterally, right worse than left. Associated tenderness to palpation of the right calf. No erythema.) Neurological exam: Present: alert, oriented X3, CN II-XII intact Psychiatric exam: Present: normal affect, normal mood Skin exam: Present: warm, dry, intact, normal color. Absent: rash Course Vital Signs 08/01/21 01:23 Temperature 98 F Pulse Rate 93 Respiratory 18 Rate Blood Pressure 144/73 O2 Sat by Pulse 100 Oximetry Medical Decision Making - Medical Decision Making This is a 46-year-old female who presents to the emergency department for right leg pain and swelling. Physical examination reveals varicose veins, however ultrasound is unavailable at this time we are unable to determine if she has a DVT in relation to the varicose veins. Patient given a dose of SQ Lovenox and a printed ordered to return [facility] later today or tomorrow for a duplex ultrasound of the right lower extremity. She has a follow-up appointment with her primary care provider already scheduled for next week, at which time they can review the results of her ultrasound. Advised she elevate the legs, wear compression stockings if she has them, and apply heat to the affected/painful areas. Return precautions reviewed in depth, the patient is instructed to return to the emergency department with any new, worsening, or concerning symptoms. Patient verbalized understanding. This case was discussed in detail with the attending ED physician. Presentation, findings, and treatment plan discussed in detail as well. Disposition Clinical Impression: Superficial thrombophlebitis Disposition: HOME SELF-CARE Instructions (If sedation given, give patient instructions): Superficial Thrombophlebitis (ED), Peripheral Vascular Disease (ED), Phlebitis (ED) Additional Instructions: Return to the emergency department with any new, worsening, or concerning symptoms. Contacts the [facility] here tomorrow for your ultrasound. Elevate the leg, apply heat to the painful areas, and wear compression stockings if you have them. Follow-up with your primary care provider as scheduled. Is patient prescribed a controlled substance at d/c from ED?: No Referrals: Jie Piper MD [Primary Care Provider] - 1-2 days
== END 2021-08-01 03:10 | disposition home or self-care (01) ==
LOC: EC 01:22
DX: I80.01 Phlebitis and thrombophlebitis of superficial vessels of right lower extremity (principal); E03.9 Hypothyroidism, unspecified; F41.9 Anxiety disorder, unspecified; Z87.891 Personal history of nicotine dependence; Z88.0 Allergy status to penicillin; Z88.1 Allergy status to other antibiotic agents; Z79.890 Hormone replacement therapy
CPT/HCPCS: 99283; 96372; J1650

== ENCOUNTER → 2022-01-31 | Outpatient (CLI) | payer BC ==
--- NOTE | 2022-01-31 16:49 | US ---
EXAMINATION TYPE: US axilla LT DATE OF EXAM: 01/31/2022 COMPARISON: NONE CLINICAL HISTORY: R59.0 LOCALIZED ENLARGED LYMPH NODES. At patients palpable there is no enlarged lymph nodes, lipoma or fluid collection. IMPRESSION: 1. Negative dominant palpable area left axilla. Clinical management recommended.
== END | disposition home or self-care (01) ==
LOC: RADUSWWP 12:50
PROVIDERS: ATTEND Internal Medicine
DX: R59.0 Localized enlarged lymph nodes (principal)

== ENCOUNTER 2022-02-18 09:52 | Emergency (ER) | payer BC ==
[2022-02-18 10:32] VITALS: TEMP 98
[2022-02-18] MEDS ORDERED: SODIUM CHLORIDE 0.9% 1,000 ML IV STA (10:51)
[2022-02-18] MEDS ORDERED: KETOROLAC 15 MG/ML 1 ML VIAL IVP STA (10:51)
[2022-02-18] MEDS ORDERED: DEXAMETHASONE SOD PHOSPHATE 10 MG/ML 1 ML VIAL IVP STA (10:52)
--- NOTE | 2022-02-18 11:32 | XR ---
EXAMINATION TYPE: XR chest 2V DATE OF EXAM: 02/18/2022 11:04 AM COMPARISON: Chest radiographs from 08/22/2014 TECHNIQUE: XR chest 2V Frontal and lateral views of the chest. CLINICAL INDICATION:Female, 46 years old with history of Chest Pain; FINDINGS: Lungs/Pleura: There is no evidence of pleural effusion, focal consolidation, or pneumothorax. Pulmonary vascularity: Unremarkable. Heart/mediastinum: Cardiomediastinal silhouette is unremarkable. Musculoskeletal: No acute osseous pathology. IMPRESSION: No acute cardiopulmonary disease/process.
--- NOTE | 2022-02-18 11:33 | ED ---
General Adult HPI - General Chief complaint: Chest Pain Stated complaint: side pain Time Seen by Provider: 02/18/22 10:38 Source: patient Mode of arrival: ambulatory - History of Present Illness Initial comments: Patient is a 46-year-old female resenting with chief complaint of right-sided chest wall pain. Patient had Covid 3 weeks ago, symptoms are mainly cough and congestion. Patient has been coughing very forcefully. Pain is localized to the right side inferior to the breast. This with coughing and deep breaths. Cough has begun to improve, however the pain is severe. Patient has not taken any medication at home for the pain. She admits to some shortness of breath. No centralized chest pain, radiation down the arm or up the neck. No abdominal pain, nausea, vomiting, fever, chills. No palpitations or weakness. No syncope or dizziness. - Related Data Home Medications Medication Instructions Recorded Confirmed hydroCHLOROthiazide [Hydrodiuril] 25 mg PO DAILY 06/08/14 03/15/21 Biotin 10,000 mcg PO DAILY 09/24/18 03/15/21 Multivitamin [Multivitamins Adult 1 each PO DAILY 09/24/18 03/15/21 Gummies] Thyroid, Pork [Trion Thyroid] 30 mg PO DAILY 09/24/18 03/15/21 Ascorbic Acid [Vitamin C] 500 mg PO DAILY 02/02/20 03/15/21 Elderberry Fruit and Flower [Black 1 each PO MOWETHSA 02/02/20 03/15/21 Elderberry 575 mg Cap] Vitamin B Complex 1 each PO DAILY 02/02/20 03/15/21 Vitamin D (Unknown Dose) 1 tab PO DAILY 02/24/20 03/15/21 Previous Rx's Medication Instructions Recorded Ondansetron Odt [Zofran Odt] 4 mg PO Q8HR PRN 10 Days #30 tab 01/27/21 Sulfamethox-Tmp 800-160Mg [Bactrim 1 each PO Q12HR #20 tab 06/27/21 DS 800-160 mg] Allergies Allergy/AdvReac Type Severity Reaction Status Date / Time amoxicillin Allergy Anaphylaxis Verified 02/18/22 10:32 ciprofloxacin [From Cipro] Allergy Rash/Hives Verified 02/18/22 10:32 Penicillins Allergy Anaphylaxis Verified 02/18/22 10:32 Review of Systems ROS Statement: Those systems with pertinent positive or pertinent negative responses have been documented in the HPI. ROS Other: All systems not noted in ROS Statement are negative. Past Medical History Past Medical History: Thyroid Disorder Additional Past Medical History / Comment(s): Hypothyroidism and water retention. 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 History of Any Multi-Drug Resistant Organisms: None Reported Past Surgical History: Cholecystectomy, Orthopedic Surgery Additional Past Surgical History / Comment(s): Knee surgery. Colonoscopy with upper endoscopy in 2019. Past Anesthesia/Blood Transfusion Reactions: Previous Problems w/ Anesthesia, Motion Sickness, Postoperative Nausea & Vomiting (PONV) Additional Past Anesthesia/Blood Transfusion Reaction / Comment(s): states she quinn and is fearful after anesthesia. Past Psychological History: No Psychological Hx Reported Smoking Status: Current some day smoker, Former smoker Past Alcohol Use History: None Reported Past Drug Use History: None Reported - Past Family History Mother Family Medical History: Diabetes Mellitus Additional Family Medical History / Comment(s): Maternal grandfather had diabetes. General Exam Limitations: no limitations General appearance: alert, in no apparent distress Head exam: Present: atraumatic, normocephalic, normal inspection Eye exam: Present: normal appearance Neck exam: Present: normal inspection Respiratory exam: Present: normal lung sounds bilaterally, chest wall tenderness. Absent: respiratory distress, wheezes, rales, rhonchi, stridor Cardiovascular Exam: Present: regular rate, normal rhythm, normal heart sounds. Absent: systolic murmur, diastolic murmur, rubs, gallop, clicks Neurological exam: Present: alert, oriented X3, CN II-XII intact Psychiatric exam: Present: normal affect, normal mood Skin exam: Present: warm, dry, intact, normal color. Absent: rash Course Vital Signs 02/18/22 02/18/22 10:24 12:44 Temperature 98 F Pulse Rate 77 75 Respiratory 20 18 Rate Blood Pressure 154/88 140/85 O2 Sat by Pulse 99 98 Oximetry Medical Decision Making - Medical Decision Making Patient is a 46-year-old female presenting with chief complaint of chest wall t enderness. Patient had Covid 3 weeks ago. She is complaining of pain on the right side of the chest just inferior to the breast. On physical examination pain is reproducible. Vital signs are stable. Heart and lungs are clear to auscultation. No lower extremity swelling. EKG shows no ischemic changes. Lab work shows no leukocytosis or anemia. Troponin is less than 0.012. BUN is 24, patient is receiving IV fluids. Chest x-ray shows no acute cardiopulmonary process. Patient is given Toradol and Decadron, on reassessment she reports dramatic improvement in her symptoms. PERC score is 0. Pain appears most consistent with costochondritis. Educated on use of anti-inflammatories and he at and ice at home. Follow-up with PCP. Report back to ER with any new or worsening symptoms. Discussed return parameters and answered all questions. Patient conveyed verbal understanding and agreed to the plan. I discussed this case in detail with my attending Dr. Carey - Lab Data Result diagrams: 02/18/22 11:30 02/18/22 11:30 Lab Results 02/18/22 02/18/22 02/18/22 Range/Units 11:30 11:30 11:30 WBC 10.0 (3.8-10.6) k/uL RBC 4.44 (3.80-5.40) m/uL Hgb 14.1 (11.4-16.0) gm/dL Hct 40.5 (34.0-46.0) % MCV 91.1 (80.0-100.0) fL MCH 31.7 (25.0-35.0) pg MCHC 34.8 (31.0-37.0) g/dL RDW 12.4 (11.5-15.5) % Plt Count 281 (150-450) k/uL MPV 8.3 Neutrophils % 53 % Lymphocytes % 35 % Monocytes % 5 % Eosinophils % 3 % Basophils % 1 % Neutrophils # 5.3 (1.3-7.7) k/uL Lymphocytes # 3.5 (1.0-4.8) k/uL Monocytes # 0.5 (0-1.0) k/uL Eosinophils # 0.3 (0-0.7) k/uL Basophils # 0.1 (0-0.2) k/uL PT 10.0 (9.0-12.0) sec INR 0.9 (<1.2) APTT 25.9 (22.0-30.0) sec Sodium 137 (137-145) mmol/L Potassium 4.2 (3.5-5.1) mmol/L Chloride 106 (98-107) mmol/L Carbon Dioxide 26 (22-30) mmol/L Anion Gap 5 mmol/L BUN 24 H (7-17) mg/dL Creatinine 0.62 (0.52-1.04) mg/dL Est GFR (CKD-EPI)AfAm >90 (>60 ml/min/1.73 sqM) Est GFR (CKD-EPI)NonAf >90 (>60 ml/min/1.73 sqM) Glucose 92 (74-99) mg/dL Calcium 10.4 H (8.4-10.2) mg/dL Magnesium 1.9 (1.6-2.3) mg/dL Total Bilirubin 0.4 (0.2-1.3) mg/dL AST 20 (14-36) U/L ALT 24 (4-34) U/L Alkaline Phosphatase 107 (38-126) U/L Troponin I (0.000-0.034) ng/mL Total Protein 6.2 L (6.3-8.2) g/dL Albumin 3.5 (3.5-5.0) g/dL 02/18/ Range/Units 11:30 WBC (3.8-10.6) k/uL RBC (3.80-5.40) m/uL Hgb (11.4-16.0) gm/dL Hct (34.0-46.0) % MCV (80.0-100.0) fL MCH (25.0-35.0) pg MCHC (31.0-37.0) g/dL RDW (11.5-15.5) % Plt Count (150-450) k/uL MPV Neutrophils % % Lymphocytes % % Monocytes % % Eosinophils % % Basophils % % Neutrophils # (1.3-7.7) k/uL Lymphocytes # (1.0-4.8) k/uL Monocytes # (0-1.0) k/uL Eosinophils # (0-0.7) k/uL Basophils # (0-0.2) k/uL PT (9.0-12.0) sec INR (<1.2) APTT (22.0-30.0) sec Sodium (137-145) mmol/L Potassium (3.5-5.1) mmol/L Chloride (98-107) mmol/L Carbon Dioxide (22-30) mmol/L Anion Gap mmol/L BUN (7-17) mg/dL Creatinine (0.52-1.04) mg/dL Est GFR (CKD-EPI)AfAm (>60 ml/min/1.73 sqM) Est GFR (CKD-EPI)NonAf (>60 ml/min/1.73 sqM) Glucose (74-99) mg/dL Calcium (8.4-10.2) mg/dL Magnesium (1.6-2.3) mg/dL Total Bilirubin (0.2-1.3) mg/dL AST (14-36) U/L ALT (4-34) U/L Alkaline Phosphatase (38-126) U/L Troponin I <0.012 (0.000-0.034) ng/mL Total Protein (6.3-8.2) g/dL Albumin (3.5-5.0) g/dL Disposition Clinical Impression: Costochondritis Disposition: HOME SELF-CARE Condition: Good Instructions (If sedation given, give patient instructions): Chest Pain (ED), Costochondritis (ED) Additional Instructions: Follow-up with PCP. Report back to ER with any new or worsening symptoms. Take ibuprofen or naproxen as needed for pain, do not combine these 2 medications. Utilizing heat or cool packs may help alleviate symptoms. Is patient prescribed a controlled substance at d/c from ED?: No Referrals: Jie Piper MD [Primary Care Provider] - 1-2 days Time of Disposition: 12:28
[2022-02-18 11:49] LABS: Basophils # (A) 0.1 k/uL (0-0.2); Basophils % (A) 1 %; Eosinophils # (A) 0.3 k/uL (0-0.7); Eosinophils % (A) 3 %; HCT 40.5 % (34.0-46.0); HGB 14.1 gm/dL (11.4-16.0); Lymphocytes # (A) 3.5 k/uL (1.0-4.8); Lymphocytes % (A) 35 %; MCH 31.7 pg (25.0-35.0); MCHC 34.8 g/dL (31.0-37.0); MCV 91.1 fL (80.0-100.0); Mean Platelet Volume 8.3; Monocytes # (A) 0.5 k/uL (0-1.0); Monocytes % (A) 5 %; Neutrophils # (A) 5.3 k/uL (1.3-7.7); Neutrophils % (A) 53 %; Platelet Count 281 k/uL (150-450); RBC 4.44 m/uL (3.80-5.40); RDW 12.4 % (11.5-15.5)
[2022-02-18 11:57] LABS: INR 0.9 (<1.2); Partial Thromboplastin Time 25.9 sec (22.0-30.0)
[2022-02-18 12:00] LABS: ALT 24 U/L (4-34); African American GFR (CKD) >90 (>60 ml/min/1.73 sqM); Albumin 3.5 g/dL (3.5-5.0); Anion Gap 5 mmol/L; Blood Urea Nitrogen 24 mg/dL (7-17); Calcium 10.4 mg/dL (8.4-10.2); Carbon Dioxide 26 mmol/L (22-30); Chloride 106 mmol/L (98-107); Glucose 92 mg/dL (74-99); Non-African American GFR(CKD) >90 (>60 ml/min/1.73 sqM); Sodium 137 mmol/L (137-145); Total Bilirubin 0.4 mg/dL (0.2-1.3); Total Protein 6.2 g/dL (6.3-8.2)
[2022-02-18 12:03] LABS: AST 20 U/L (14-36); Alkaline Phosphatase 107 U/L (38-126); Magnesium 1.9 mg/dL (1.6-2.3); Potassium 4.2 mmol/L (3.5-5.1)
[2022-02-18 12:45] VITALS: BP 140/85; PULSE 75; RESP 18
== END 2022-02-18 12:52 | disposition home or self-care (01) ==
LOC: EC 09:52
DX: M94.0 Chondrocostal junction syndrome [Tietze] (principal); E07.9 Disorder of thyroid, unspecified; F17.200 Nicotine dependence, unspecified, uncomplicated; Z79.890 Hormone replacement therapy; Z88.1 Allergy status to other antibiotic agents; Z88.0 Allergy status to penicillin
CPT/HCPCS: 36415; 93005; 80053; 83735; 84484; 85025; 85610; 85730; 71046; 99285; 96374; 96375; 96361; J1100; J1885

== ENCOUNTER → 2022-06-27 | Outpatient (CLI) | payer BC ==
[2022-06-27 15:48] VITALS: BP 132/85; PULSE 78; RESP 16; TEMP 98.5
--- NOTE | 2022-06-27 17:00 | P.HPOB ---
History of Present Illness H&P Date: 06/27/22 Chief Complaint: The patient is here for her routine gynecologic exam and ma mmogram. This is a 47-year-old with an LMP of 05/20/2022. The patient's is status post vasectomy. Menstrual periods have been regular every month. She has noticed some vaginal dryness with sexual activity. She is regularly sexually active and does achieve orgasm, but there were times when it seems more difficult to achieve orgasm. She has had occasional hot flashes. She has also noticed some genital changes such as slight dropping or bulging from the vaginal area. It also seems like her bladder does not seem to hold is much and she does urinate more frequently. Review of Systems She has lost about 23 pounds over the past year. She has intentionally lost weight through [employer]. She denies respiratory or cardiac problems. GI: Occasional stomach pain since she has been seen Dr. Parry for this. Past Medical History Past Medical History: Thyroid Disorder Additional Past Medical History / Comment(s): Hypothyroidism and water retention. 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 History of Any Multi-Drug Resistant Organisms: None Reported Past Surgical History: Cholecystectomy, Orthopedic Surgery Additional Past Surgical History / Comment(s): Knee surgery. Colonoscopy with upper endoscopy in 2019. Past Anesthesia/Blood Transfusion Reactions: Previous Problems w/ Anesthesia, Motion Sickness, Postoperative Nausea & Vomiting (PONV) Additional Past Anesthesia/Blood Transfusion Reaction / Comment(s): states she quinn and is fearful after anesthesia. Past Psychological History: No Psychological Hx Reported Smoking Status: Current every day smoker (About 7-8 cigarettes per day.) Past Alcohol Use History: None Reported Additional Past Alcohol Use History / Comment(s): smoker since her 20s. Previously 14 cigarettes per day. She has decreased cigarette usage. 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 She has 2 adopted children. She has 1 grandchild. - Past Family History Mother Family Medical History: Diabetes Mellitus Additional Family Medical History / Comment(s): Maternal grandfather had diabet es. Medications and Allergies Home Medications Medication Instructions Recorded Confirmed Type hydroCHLOROthiazide [Hydrodiuril] 25 mg PO DAILY 06/08/14 06/27/22 History Biotin 10,000 mcg PO DAILY 09/24/18 06/27/22 History Multivitamin [Multivitamins Adult 1 each PO DAILY 09/24/18 06/27/22 History Gummies] Thyroid, Pork [Trilla Thyroid] 30 mg PO DAILY 09/24/18 06/27/22 History Ascorbic Acid [Vitamin C] 500 mg PO DAILY 02/02/20 06/27/22 History Vitamin B Complex 1 each PO DAILY 02/02/20 06/27/22 History Vitamin D (Unknown Dose) 1 tab PO DAILY 02/24/20 06/27/22 History Ondansetron Odt [Zofran Odt] 4 mg PO Q8HR PRN 10 Days #30 tab 01/27/21 06/27/22 Rx Ashgerardodha Root Extract 500 mg PO DAILY 06/27/22 06/27/22 History [Ashwagandha] Allergies Allergy/AdvReac Type Severity Reaction Status Date / Time amoxicillin Allergy Anaphylaxis Verified 06/27/22 15:43 ciprofloxacin [From Cipro] Allergy Rash/Hives Verified 06/27/22 15:43 Penicillins Allergy Anaphylaxis Verified 06/27/22 15:43 Exam Vital Signs Temp Pulse Resp BP Pulse Ox 06/27/22 15:46 98.5 F 78 16 132/85 97 Intake and Output 06/27/22 06/27/22 06/27/22 06:59 14:59 22:59 Other: Weight 119.295 kg Height 5 feet 6 inches, weight 263 pounds, BMI 42.4. This is a well-developed well-nourished heavyset white female who is alert and oriented times 3 in no acute distress. HEENT: Within normal limits. NECK: Supple without mass or thyromegaly. CHEST AND LUNGS: Clear to auscultation. HEART: Regular rate and rhythm. BREASTS: Are without mass or discharge. AXILLARY EXAM: Negative for adenopathy. BACK: Negative for CVA tenderness. ABDOMEN: Soft, nontender, without palpable masses. PELVIC EXAM: Normal external genitalia. Cervix and vagina appear normal. There is no unusual discharge. There is a grade 2 rectocele. The uterus and bladder are without prolapse at rest, but there is a grade 1 uterine prolapse and grade 1 cystocele with Valsalva. No urinary leakage was demonstrated. The uterus is midposition, nongravid size and nontender. There are no palpable adnexal masses or tenderness. Bimanual examination is somewhat limited secondary to her size. RECTAL EXAM: Rectovaginal exam is negative for mass or tenderness and is negative for occult blood. This exam does confirm a small rectocele. EXTREMITIES: Nontender. IMPRESSION: 1. 47-year-old perimenopausal female with mild vasomotor symptoms and regular menses. 2. Grade 2 rectocele which is minimally symptomatic. 3. Some vaginal dryness with some changes in sexual desire and occasional issues with achieving orgasm. Probably consistent with perimenopausal hormonal changes. 4. Previous ASCUS Pap smear with negative high-risk HPV testing in 2019 and on 03/15/2021.. PLAN: 1. Pap smear cotest was performed. The [facility] management guidelines were utilized to determine recommended plan. 2. Self breast awareness was discussed with the patient. We have also discussed symptoms associated with inflammatory breast cancer. 3. Screening mammogram will be done today. 4. Osteoporosis prevention was discussed. I have stressed the importance of adequate calcium, vitamin D and regular exercise. Recommended amounts of calcium and vitamin D were also discussed. 5. We have discussed pelvic prolapse. At this time I do not believe any intervention is necessary. She will try to avoid holding stool and urine longer than necessary. 6. We have discussed hormonal changes that are associated with the perimenopause as well as how this can affect sexual desire as well as inability to achieve orgasm. Since she does achieve orgasm regularly we will try to address vaginal dryness. Recommended an [id number] lubricant on a regular basis with sexual activity. 7. She will keep a menstrual calendar and call if menstrual problems. 8. She was advised to return in one year for her annual well woman exam and as needed.
--- NOTE | 2022-06-28 07:33 | MM ---
Reason for Exam: Screening (asymptomatic). Last screening mammogram was performed 12 month(s) ago. Patient History: Menarche at age 12. First Full-Term at age 24. Patient has history of breast feeding. Last menstrual period: 05/20/2022 Risk Values: Araceli 5 year model risk: 0.9%. NCI Lifetime model risk: 9.2%. Prior Study Comparison: 09/24/2018 Bilateral Screening Mammogram, [facility]. 12/09/2019 Bilateral Screening Mammogram, [facility]. 06/10/2021 Bilateral Screening Mammogram, [facility]. Tissue Density: There are scattered fibroglandular densities. Findings: Analyzed By CAD. Benign-appearing bilateral axillary lymph nodes are redemonstrated. Occasional tiny benign appearing round bilaterally redemonstrated. There is no suspicious group of microcalcifications or new suspicious mass in either breast. Overall Assessment: Benign, BI-RAD 2 Management: Screening Mammogram of both breasts in 1 year. A clinical breast exam by your physician is recommended on an annual basis and results should be correlated with mammographic findings. Electronically signed and approved by: Alvaro Martinez M.D.
== END ==
LOC: WWCWWP 15:36
PROVIDERS: ATTEND Obstetrics & Gynecology
DX: Z12.31 Encounter for screening mammogram for malignant neoplasm of breast (principal); E03.9 Hypothyroidism, unspecified; F17.210 Nicotine dependence, cigarettes, uncomplicated; N95.1 Menopausal and female climacteric states; N81.6 Rectocele; Z83.3 Family history of diabetes mellitus; Z88.0 Allergy status to penicillin; Z88.1 Allergy status to other antibiotic agents; Z90.49 Acquired absence of other specified parts of digestive tract
CPT/HCPCS: 77063; 77067

== ENCOUNTER → 2023-07-03 | Outpatient (CLI) | payer BC ==
[2023-07-03 13:18] VITALS: BP 144/82; PULSE 85; RESP 17; TEMP 98.4
--- NOTE | 2023-07-03 13:49 | P.HPOB ---
History of Present Illness H&P Date: 07/03/23 Chief Complaint: The patient is here for her routine gynecologic exam and ma mmogram. This is a 48-year-old G3, P3 with an LMP of 05/18/2023. Patient's is status postvasectomy. Menstrual periods have been fairly regular about monthly. She has been experiencing some hot flashes and feels like her patient's has been short. She is wondering if these are some signs of early menopause. She has had occasional slight urinary leakage with coughing or sneezing. It also feels like she cannot hold her urine as long as usual. She is otherwise without gynecologic complaints. Review of Systems The patient has gained 17 pounds over the last year. This was after losing 23 pounds the previous year with weight watchers. She states she has not kept up with the weight watchers principles. She denies respiratory, cardiac, or G.I. problems. Past Medical History Past Medical History: Thyroid Disorder Additional Past Medical History / Comment(s): Hypothyroidism and water rete ntion. 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 History of Any Multi-Drug Resistant Organisms: None Reported Past Surgical History: Cholecystectomy, Orthopedic Surgery Additional Past Surgical History / Comment(s): Knee surgery. Colonoscopy with upper endoscopy in 2019. Past Anesthesia/Blood Transfusion Reactions: Previous Problems w/ Anesthesia, Motion Sickness, Postoperative Nausea & Vomiting (PONV) Additional Past Anesthesia/Blood Transfusion Reaction / Comment(s): states she quinn and is fearful after anesthesia. Past Psychological History: No Psychological Hx Reported Smoking Status: Current every day smoker (Just under 1 pack of cigarettes per day.) Past Alcohol Use History: None Reported Additional Past Alcohol Use History / Comment(s): smoker since her 20s. Previously 14 cigarettes per day. She has decreased cigarette usage. 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 - Past Family History Mother Family Medical History: Diabetes Mellitus Additional Family Medical History / Comment(s): Maternal grandfather had diabetes. Medications and Allergies Home Medications Medication Instructions Recorded Confirmed Type hydroCHLOROthiazide [Hydrodiuril] 25 mg PO DAILY 06/08/14 07/03/23 History Biotin 10,000 mcg PO DAILY 09/24/18 07/03/23 History Multivitamin [Multivitamins Adult 1 each PO DAILY 09/24/18 07/03/23 History Gummies] Thyroid, Pork [[place] Thyroid] 30 mg PO DAILY 09/24/18 07/03/23 History Ascorbic Acid [Vitamin C] 500 mg PO DAILY 02/02/20 07/03/23 History Vitamin B Complex 1 each PO DAILY 02/02/20 07/03/23 History Vitamin D (Unknown Dose) 1 tab PO DAILY 02/24/20 07/03/23 History Ashgerardodha Root Extract 500 mg PO DAILY 06/27/22 07/03/23 History [Ashwagandha] Allergies Allergy/AdvReac Type Severity Reaction Status Date / Time amoxicillin Allergy Anaphylaxis Verified 07/03/23 13:01 ciprofloxacin [From Cipro] Allergy Rash/Hives Verified 07/03/23 13:01 Penicillins Allergy Anaphylaxis Verified 07/03/23 13:01 Exam Vital Signs Temp Pulse Resp BP Pulse Ox 07/03/23 13:04 98.4 F 85 17 144/82 97 Intake and Output 07/02/23 07/03/23 07/03/23 22:59 06:59 14:59 Other: Weight 127.006 kg Height 5 feet 6 inches, weight 280 pounds, BMI 45.2 This is a well-developed well-nourished heavyset white female who is alert and oriented times 3 in no acute distress. HEENT: Within normal limits. NECK: Supple without mass or thyromegaly. CHEST AND LUNGS: Clear to auscultation. HEART: Regular rate and rhythm. BREASTS: Are without mass or discharge. AXILLARY EXAM: Negative for adenopathy. BACK: Negative for CVA tenderness. ABDOMEN: Soft, obese, nontender, without palpable masses. PELVIC EXAM: Normal external genitalia. Cervix and vagina appear normal. There is no unusual discharge. There is no evidence of prolapse. The uterus is midposition, nongravid size and nontender. There are no palpable adnexal masses or tenderness. Bimanual examination is somewhat limited secondary to her size. RECTAL EXAM: Rectovaginal exam is negative for mass or tenderness and is negative for occult blood. EXTREMITIES: Nontender. IMPRESSION: 1. 56-year-old perimenopausal female whose is status post vasectomy, with normal gynecologic exam. 2. History of 2 previous ASCUS Pap smears and negative high-risk HPV testing, followed by a negative Pap smear cotest on 06/27/2022. 3. Mild stress urinary incontinence without significant physical findings at this time. PLAN: 1. Pap smear cotest was performed. [facility] management guidelines will be used to determine future follow-up. 2. Self breast awareness was discussed with the patient. We have also discussed symptoms associated with inflammatory breast cancer. 3. Screening mammogram will be done today. 4. Osteoporosis prevention was discussed. I have stressed the importance of adequate calcium, vitamin D and regular exercise. Recommended amounts of calcium and vitamin D were also discussed. 5. I have recommended that she try to quit smoking. We have discussed many reasons why this is important. 6. Weight control was also discussed with the patient. She will try to get back with doing the things that helped her to lose more than 20 pounds using weight watchers. 7. We have discussed possible menopausal symptoms as well as ways of dealing with these changes. 8. I recommended Kegel exercises with timed voids. Instructions were verbally given to the patient. 9. She was advised to return in one year for her annual well woman exam and as needed.
--- NOTE | 2023-07-04 08:03 | MM ---
Reason for Exam: Screening (asymptomatic). Last screening mammogram was performed 12 month(s) ago. Patient History: Menarche at age 12. First Full-Term at age 24. Patient has history of breast feeding. Risk Values: Araceli 5 year model risk: 1.0%. NCI Lifetime model risk: 9.1%. Prior Study Comparison: 12/09/2019 Bilateral Screening Mammogram, [facility]. 06/10/2021 Bilateral Screening Mammogram, [facility]. 06/27/2022 Bilateral MG 3D screening mammo w/cad, [facility]. Tissue Density: The breasts are almost entirely fatty. Findings: Analyzed By CAD. Right breast: There is no suspicious group of microcalcifications or new suspicious mass. Left breast: There is no suspicious group of microcalcifications or new suspicious mass. Overall Assessment: Negative, BI-RAD 1 Management: Screening Mammogram of both breasts in [address] [facility] will attempt to contact patient to return for supplemental views and ultrasound if indicated. Patient should continue monthly self-breast exams. A clinical breast exam by your physician is recommended on an annual basis. This exam should not preclude additional follow-up of suspicious palpable abnormalities. Note on Araceli scores and lifetime risk: 1. A Araceli score greater than 3% is considered moderate risk. If this is the case, consider specialist referral to assess eligibility for a risk reducing agent. 2. If overall lifetime risk for the development of breast cancer is 20% or higher, the patient may qualify for future screening with alternating mammogram and breast MRI. Electronically signed and approved by: Andrea Villaseñor DO
== END | disposition home or self-care (01) ==
LOC: WWCWWP 12:45
PROVIDERS: ATTEND Obstetrics & Gynecology
DX: Z12.31 Encounter for screening mammogram for malignant neoplasm of breast (principal); N39.3 Stress incontinence (female) (male); F17.200 Nicotine dependence, unspecified, uncomplicated; Z88.0 Allergy status to penicillin; Z88.1 Allergy status to other antibiotic agents
CPT/HCPCS: 77063; 77067

== ENCOUNTER → 2023-07-16 | Outpatient (CLI) | payer BC ==
--- NOTE | 2023-07-16 14:50 | XR ---
EXAMINATION TYPE: XR chest 2V DATE OF EXAM: 07/16/2023 2:37 PM CLINICAL INDICATION:Female, 48 years old with history of [id number] BRONCHOSPASM; COMPARISON: Chest radiographs from 02/18/2022 TECHNIQUE: XR chest 2V Frontal and lateral views of the chest. FINDINGS: Lungs/Pleura: There is no evidence of pleural effusion, focal consolidation, or pneumothorax. Pulmonary vascularity: Unremarkable. Heart/mediastinum: Cardiomediastinal silhouette is unremarkable. Musculoskeletal: No acute osseous pathology. IMPRESSION: No acute cardiopulmonary disease/process.
== END | disposition home or self-care (01) ==
LOC: RADXRYALE 14:28
PROVIDERS: ATTEND Internal Medicine
DX: J98.01 Acute bronchospasm (principal)
CPT/HCPCS: 71046

== ENCOUNTER 2023-11-29 03:33 | Emergency (ER) | payer BC ==
[2023-11-29 03:47] VITALS: TEMP 98
--- NOTE | 2023-11-29 04:08 | ED ---
General Adult HPI - General Chief complaint: Abdominal Pain Stated complaint: Left Side Pain Time Seen by Provider: 11/29/23 03:42 Source: patient, RN notes reviewed, old records reviewed Mode of arrival: ambulatory Limitations: no limitations - History of Present Illness Initial comments: 48-year-old female presenting for evaluation of left upper quadrant abdominal pain which has been present for the past 1 month. Patient states her symptoms have been steadily worsening and tonight the pain was more significant. She reports a fullness in the left upper quadrant. She states she has had some loose stools over the past 1 month. No vomiting. No fever. No weight loss. She states she is currently on her menstrual cycle. - Related Data Home Medications Medication Instructions Recorded Confirmed hydroCHLOROthiazide [Hydrodiuril] 25 mg PO DAILY 06/08/14 07/03/23 Biotin 10,000 mcg PO DAILY 09/24/18 07/03/23 Multivitamin [Multivitamins Adult 1 each PO DAILY 09/24/18 07/03/23 Gummies] Thyroid, Pork [[place] Thyroid] 30 mg PO DAILY 09/24/18 07/03/23 Ascorbic Acid [Vitamin C] 500 mg PO DAILY 02/02/20 07/03/23 Vitamin B Complex 1 each PO DAILY 02/02/20 07/03/23 Vitamin D (Unknown Dose) 1 tab PO DAILY 02/24/20 07/03/23 Ashwagandha Root Extract 500 mg PO DAILY 06/27/22 07/03/23 [Ashwagandha] Allergies Allergy/AdvReac Type Severity Reaction Status Date / Time amoxicillin Allergy Anaphylaxis Verified 07/03/23 13:01 ciprofloxacin [From Cipro] Allergy Rash/Hives Verified 07/03/23 13:01 Penicillins Allergy Anaphylaxis Verified 07/03/23 13:01 Review of Systems ROS Statement: Those systems with pertinent positive or pertinent negative responses have been documented in the HPI. ROS Other: All systems not noted in ROS Statement are negative. Past Medical History Past Medical History: Thyroid Disorder Additional Past Medical History / Comment(s): Hypothyroidism and water retention. 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 History of Any Multi-Drug Resistant Organisms: None Reported Past Surgical History: Cholecystectomy, Orthopedic Surgery Additional Past Surgical History / Comment(s): Knee surgery. Colonoscopy with upper endoscopy in 2019. Past Anesthesia/Blood Transfusion Reactions: Previous Problems w/ Anesthesia, Motion Sickness, Postoperative Nausea & Vomiting (PONV) Additional Past Anesthesia/Blood Transfusion Reaction / Comment(s): states she quinn and is fearful after anesthesia. Past Psychological History: No Psychological Hx Reported Smoking Status: Current every day smoker Past Alcohol Use History: None Reported Past Drug Use History: None Reported - Past Family History Mother Family Medical History: Diabetes Mellitus Additional Family Medical History / Comment(s): Maternal grandfather had diabetes. General Exam Limitations: no limitations General appearance: alert, in no apparent distress Head exam: Present: atraumatic, normocephalic Eye exam: Present: normal appearance, PERRL Neck exam: Present: normal inspection. Absent: tenderness, meningismus Respiratory exam: Present: normal lung sounds bilaterally. Absent: respiratory distress, wheezes Cardiovascular Exam: Present: regular rate, normal rhythm GI/Abdominal exam: Present: distended, tenderness Neurological exam: Present: alert, oriented X3 Psychiatric exam: Present: normal affect, normal mood Skin exam: Present: warm, dry, intact. Absent: cyanosis, diaphoretic Course Vital Signs 11/29/23 11/29/23 03:42 05:21 Temperature 98 F Pulse Rate 78 74 Respiratory 18 13 Rate Blood Pressure 194/76 115/70 O2 Sat by Pulse 100 98 Oximetry Medical Decision Making - Medical Decision Making Was pt. sent in by a medical professional or institution (RITA Guadarrama, CEMETERY COUNSELOR, urgent care, hospital, or skilled nursing...) When possible be specific @ -No Did you speak to anyone other than the patient for history (EMS, parent, family, police, friend...)? What history was obtained from this source @ -No Did you review nursing and triage notes (agree or disagree)? Why? @ -I reviewed and agree with nursing and triage notes Were old charts reviewed (outside hosp., previous admission, EMS record, old EKG, old radiological studies, urgent care reports/EKG's, skilled nursing records)? Report findings @ -No old charts were reviewed Differential Abdominal Pain Women: Appendicitis, Cholecystitis, diverticulosis, ischemic bowel, pancreatitis, hepatitis, UTI, gastroenteritis, AAA, incarcerated hernia, bowel obstruction, constipation, inflammatory bowel, hepatitis, peptic ulcer disease, splenic infarction, perforated viscus, vulvitis, ovarian torsion, PID, kidney stone, placenta abruption, this is not meant to be an all-inclusive list EKG interpreted by me (3pts min.). @ -As above X-rays interpreted by me (1pt min.). @ -None done CT interpreted by me (1pt min.). @ -CT is negative for acute findings to explain patient's pain. U/S interpreted by me (1pt. min.). @ -None done What testing was considered but not performed or refused? (CT, X-rays, U/S, labs)? Why? @ -None What meds were considered but not given or refused? Why? @ -None Did you discuss the management of the patient with other professionals (professionals i.e. Dr., PA, CEMETERY COUNSELOR, lab, RT, psych nurse, social media intern, supervisor education, teacher, administrative officer, case investigator)? Give summary @ -No Was smoking cessation discussed for >3mins.? @ -No Was critical care preformed (if so, how long)? @ -No Were there social determinants of health that impacted care today? How? (Homelessness, low income, unemployed, alcoholism, drug addiction, transport ation, low edu. Level, literacy, decrease access to med. care, detention, rehab)? @ -No Was there de-escalation of care discussed even if they declined (Discuss DNR or withdrawal of care, Hospice)? DNR status @ -No What co-morbidities impacted this encounter? (DM, HTN, Smoking, COPD, CAD, Cancer, CVA, ARF, Chemo, Hep., AIDS, mental health diagnosis, sleep apnea, morbid obesity)? @ -None Was patient admitted / discharged? Hospital course, mention meds given and route, prescriptions, significant lab abnormalities, going to OR and other pertinent info. @48-year-old female presenting for evaluation of 1 month of left upper quadrant abdominal pain. Patient has an appointment with gastroenterology in the upcoming weeks. No fever. No vomiting. Laboratory testing is unremarkable. CT does not show a cause for the patient's pain. She will continue outpatient follow-up. Undiagnosed new problem with uncertain prognosis? @ -No Drug Therapy requiring intensive monitoring for toxicity (Heparin, Nitro, Insulin, Cardizem)? @ -No Were any procedures done? @ -No Diagnosis/symptom? @ -Abdominal pain Acute, or Chronic, or Acute on Chronic? @Chronic Uncomplicated (without systemic symptoms) or Complicated (systemic symptoms)? @ -Default Side effects of treatment? @ -No Exacerbation, Progression, or Severe Exacerbation? @ -No Poses a threat to life or bodily function? How? (Chest pain, [place], HI, pneumonia, PE, COPD, DKA, ARF, appy, cholecystitis, CVA, Diverticulitis, Homicidal, Suicidal, threat to staff... and all critical care pts) @ -No - Lab Data Result diagrams: 11/29/23 04:25 11/29/23 04:25 Lab Results 11/29/23 11/29/23 11/29/23 Range/Units 04:09 04:25 04:25 WBC 9.7 (3.8-10.6) k/uL RBC 4.42 (3.80-5.40) m/uL Hgb 14.1 (11.4-16.0) gm/dL Hct 41.7 (34.0-46.0) % MCV 94.4 (80.0-100.0) fL MCH 31.8 (25.0-35.0) pg MCHC 33.7 (31.0-37.0) g/dL RDW 13.4 (11.5-15.5) % Plt Count 239 (150-450) k/uL MPV 8.1 Neutrophils % 53 % Lymphocytes % 35 % Monocytes % 7 % Eosinophils % 3 % Basophils % 1 % Neutrophils # 5.1 (1.3-7.7) k/uL Lymphocytes # 3.3 (1.0-4.8) k/uL Monocytes # 0.6 (0-1.0) k/uL Eosinophils # 0.2 (0-0.7) k/uL Basophils # 0.1 (0-0.2) k/uL PT 10.2 (10.0-12.5) sec INR 0.9 (<1.2) APTT 27.2 (22.0-30.0) sec Sodium (137-145) mmol/L Potassium (3.5-5.1) mmol/L Chloride (98-107) mmol/L Carbon Dioxide (22-30) mmol/L Anion Gap mmol/L BUN (7-17) mg/dL Creatinine (0.52-1.04) mg/dL Est GFR (CKD-EPI)AfAm (>60 ml/min/1.73 sqM) Est GFR (CKD-EPI)NonAf (>60 ml/min/1.73 sqM) Glucose (74-99) mg/dL Calcium (8.4-10.2) mg/dL Total Bilirubin (0.2-1.3) mg/dL AST (14-36) U/L ALT (4-34) U/L Alkaline Phosphatase (38-126) U/L Total Protein (6.3-8.2) g/dL Albumin (3.5-5.0) g/dL Amylase (30-110) U/L Lipase (23-300) U/L Urine Color Light Red Urine Appearance Clear (Clear) Urine pH 5.5 (5.0-8.0) Ur Specific [place] 1.025 (1.001-1.035) Urine Protein Trace H (Negative) Urine Glucose (UA) Negative (Negative) Urine Ketones Negative (Negative) Urine Blood Large H (Negative) Urine Nitrite Negative (Negative) Urine Bilirubin Negative (Negative) Urine Urobilinogen <2.0 (<2.0) mg/dL Ur Leukocyte Esterase Trace H (Negative) Urine RBC >182 H (0-5) /hpf Urine WBC 1 (0-5) /hpf Ur Squamous Epith Cells 1 (0-4) /hpf Urine Bacteria Rare H (None) /hpf Urine Mucus Rare H (None) /hpf 11/29/23 Range/Units 04:25 WBC (3.8-10.6) k/uL RBC (3.80-5.40) m/uL Hgb (11.4-16.0) gm/dL Hct (34.0-46.0) % MCV (80.0-100.0) fL MCH (25.0-35.0) pg MCHC (31.0-37.0) g/dL RDW (11.5-15.5) % Plt Count (150-450) k/uL MPV Neutrophils % % Lymphocytes % % Monocytes % % Eosinophils % % Basophils % % Neutrophils # (1.3-7.7) k/uL Lymphocytes # (1.0-4.8) k/uL Monocytes # (0-1.0) k/uL Eosinophils # (0-0.7) k/uL Basophils # (0-0.2) k/uL PT (10.0-12.5) sec INR (<1.2) APTT (22.0-30.0) sec Sodium 138 (137-145) mmol/L Potassium 4.1 (3.5-5.1) mmol/L Chloride 112 H (98-107) mmol/L Carbon Dioxide 29 (22-30) mmol/L Anion Gap -3 mmol/L BUN 24 H (7-17) mg/dL Creatinine 0.74 (0.52-1.04) mg/dL Est GFR (CKD-EPI)AfAm >90 (>60 ml/min/1.73 sqM) Est GFR (CKD-EPI)NonAf >90 (>60 ml/min/1.73 sqM) Glucose 93 (74-99) mg/dL Calcium 10.6 H (8.4-10.2) mg/dL Total Bilirubin 0.3 (0.2-1.3) mg/dL AST 21 (14-36) U/L ALT 21 (4-34) U/L Alkaline Phosphatase 107 (38-126) U/L Total Protein 5.8 L (6.3-8.2) g/dL Albumin 3.3 L (3.5-5.0) g/dL Amylase <30 L (30-110) U/L Lipase 60 (23-300) U/L Urine Color Urine Appearance (Clear) Urine pH (5.0-8.0) Ur Specific Keystone (1.001-1.035) Urine Protein (Negative) Urine Glucose (UA) (Negative) Urine Ketones (Negative) Urine Blood (Negative) Urine Nitrite (Negative) Urine Bilirubin (Negative) Urine Urobilinogen (<2.0) mg/dL Ur Leukocyte Esterase (Negative) Urine RBC (0-5) /hpf Urine WBC (0-5) /hpf Ur Squamous Epith Cells (0-4) /hpf Urine Bacteria (None) /hpf Urine Mucus (None) /hpf Disposition Clinical Impression: Abdominal pain Disposition: HOME SELF-CARE Condition: Good Instructions (If sedation given, give patient instructions): Abdominal Pain (ED) Is patient prescribed a controlled substance at d/c from ED?: No Referrals: Jie Piper MD [Primary Care Provider] - 1-2 days Time of Disposition: 06:46
[2023-11-29 04:29] LABS: Appearance,Urine Clear (Clear); Bacteria,Urine Rare /hpf; Bilirubin,Urine Negative (Negative); Blood,Urine Large (Negative); Color,Urine Light Red; Glucose,Urine (UA) Negative (Negative); Ketones,Urine Negative (Negative); Leukocyte Esterase,Urine Trace (Negative); Mucus,Urine Rare /hpf; Nitrite,Urine Negative (Negative); PH, Urine 5.5 (5.0-8.0); Protein,Urine Trace (Negative); RBC,Urine >182 /hpf (0-5); Specific Gravity,Urine 1.025 (1.001-1.035); Squamous Epithelial Cell,Urine 1 /hpf (0-4); Urobilinogen,Urine <2.0 mg/dL (<2.0); WBC,Urine 1 /hpf (0-5)
[2023-11-29 04:34] LABS: Basophils # (A) 0.1 k/uL (0-0.2); Basophils % (A) 1 %; Eosinophils # (A) 0.2 k/uL (0-0.7); Eosinophils % (A) 3 %; HCT 41.7 % (34.0-46.0); HGB 14.1 gm/dL (11.4-16.0); Lymphocytes # (A) 3.3 k/uL (1.0-4.8); Lymphocytes % (A) 35 %; MCH 31.8 pg (25.0-35.0); MCHC 33.7 g/dL (31.0-37.0); MCV 94.4 fL (80.0-100.0); Mean Platelet Volume 8.1; Monocytes # (A) 0.6 k/uL (0-1.0); Monocytes % (A) 7 %; Neutrophils # (A) 5.1 k/uL (1.3-7.7); Neutrophils % (A) 53 %; Platelet Count 239 k/uL (150-450); RBC 4.42 m/uL (3.80-5.40); RDW 13.4 % (11.5-15.5); WBC 9.7 k/uL (3.8-10.6)
[2023-11-29 04:46] LABS: ALT 21 U/L (4-34); AST 21 U/L (14-36); African American GFR (CKD) >90 (>60 ml/min/1.73 sqM); Albumin 3.3 g/dL (3.5-5.0); Alkaline Phosphatase 107 U/L (38-126); Anion Gap -3 mmol/L; Blood Urea Nitrogen 24 mg/dL (7-17); Calcium 10.6 mg/dL (8.4-10.2); Carbon Dioxide 29 mmol/L (22-30); Chloride 112 mmol/L (98-107); Glucose 93 mg/dL (74-99); Lipase 60 U/L (23-300); Non-African American GFR(CKD) >90 (>60 ml/min/1.73 sqM); Potassium 4.1 mmol/L (3.5-5.1); Sodium 138 mmol/L (137-145); Total Bilirubin 0.3 mg/dL (0.2-1.3); Total Protein 5.8 g/dL (6.3-8.2)
[2023-11-29 04:54] LABS: INR 0.9 (<1.2); Partial Thromboplastin Time 27.2 sec (22.0-30.0); Prothrombin Time 10.2 sec (10.0-12.5)
[2023-11-29 05:08] LABS: Amylase <30 U/L (30-110)
[2023-11-29 05:22] VITALS: PULSE 74
[2023-11-29] MEDS: KETOROLAC 15 MG/ML 1 ML VIAL IVP STA (05:43)
--- NOTE | 2023-11-29 06:43 | CT ---
EXAM: CT Abdomen and Pelvis With Intravenous Contrast CLINICAL HISTORY: ITS.REASON CT Reason: abdominal pain/luq TECHNIQUE: Axial computed tomography images of the abdomen and pelvis with intravenous contrast. CTDI is 36.3 mGy and DLP is 1875.5 mGy-cm. This CT exam was performed using one or more of the following dose reduction techniques: automated exposure control, adjustment of the mA and/or kV according to patient size, and/or use of iterative reconstruction technique. COMPARISON: No relevant prior studies available. FINDINGS: Lung bases: Unremarkable. No mass. No consolidation. ABDOMEN: Liver: Unremarkable. No mass. Gallbladder and bile ducts: Unremarkable. No calcified stones. No ductal dilation. Pancreas: Unremarkable. No mass. No ductal dilation. Spleen: Unremarkable. No splenomegaly. Adrenals: Unremarkable. No mass. Kidneys and ureters: Unremarkable. No solid mass. No hydronephrosis. Stomach and bowel: No evidence of bowel obstruction. Colonic diverticulosis. No evidence of diverticulitis. PELVIS: Appendix: Normal appendix. Bladder: Unremarkable. No mass. Reproductive: Simple left ovarian cyst measuring 2.4 cm in maximum diameter. No follow-up is necessary. ABDOMEN and PELVIS: Intraperitoneal space: Unremarkable. No free air. No significant fluid collection. Bones/joints: Degenerative changes in the spine. Grade 1 anterolisthesis of L5 on S1 with spondylolysis. No acute fracture. No dislocation. Soft tissues: Umbilical hernia containing fat. Vasculature: Unremarkable. No abdominal aortic aneurysm. Lymph nodes: Unremarkable. No enlarged lymph nodes. Other findings: Cholecystic changes. IMPRESSION: 1. Normal appendix. 2. No evidence of bowel obstruction. 3. Colonic diverticulosis. No evidence of diverticulitis. 4. No other acute findings. 5. Incidental findings as described.
[2023-11-29 06:58] VITALS: BP 132/84; RESP 17
== END 2023-11-29 06:57 | disposition home or self-care (01) ==
LOC: EC 03:33
CPT/HCPCS: 36415; 74177; 80053; 81001; 82150; 83690; 85025; 85610; 85730; 96374; 99284

== ENCOUNTER → 2024-01-22 | Outpatient (CLI) | payer BC ==
[2024-01-22 15:39] VITALS: BP 135/86; PULSE 91; RESP 17; TEMP 98.5
--- NOTE | 2024-01-22 16:57 | P.PN ---
Progress Note - Text Progress Note Date: 01/22/24 Chief Complaint: Very heavy menstrual period 2 weeks ago. HPI: This is a 48-year-old G3, P3 with an LMP of 01/07/2024. Her is status post vasectomy. She states her menstrual periods were regular every month up until last month. She had a normal menstrual period in early December. Toward mid to late December, she had 4 days of heavier bleeding. Her LMP was very heavy with blood clots. She states she had to use 2 pads and had to change her protection up to about every 3 hours. She previously had a CT scan that was done because of upper abdominal pains on 11/29/2023. That CT scan of the abdomen and pelvis showed a 2.4 cm simple left ovarian cyst. She has been having some pains on the in the whole pelvis with sexual intercourse especially when she is on top. She has also been experiencing hot flashes, night sweats and feeling more emotional. ROS: Unremarkable PE: Blood pressure: 135/86, Height: 5 feet 5 inches, Weight: 279 pounds, Temperature: 98.5, Pulse: 91. This is a well developed, well nourished, heavyset white female who is alert and orientedx3, in no acute distress. Abdomen is obese, soft and nontender without palpable masses. Normal external genitalia. Cervix and vagina appear normal with no unusual discharge. There is no blood in the vagina. There is no cervical motion tenderness. The uterus is midposition and nongravid size and nontender. There is mild left adnexal tenderness without palpable mass. There is no significant right adnexal mass or tenderness. Impression: 1. 48-year-old perimenopausal female is status post vasectomy, with a 2-month history of polymenorrhea and a very heavy LMP. Possible dysfunctional uterine bleeding which was preceded by regular menstrual periods in the past. 2. Left ovarian cyst by CT scan measuring 2.4 cm on 11/29/2023. 3. Menometrorrhagia during the past 2 months. This may be related to d ysfunctional uterine bleeding with a perimenopausal change. At this time I doubt cancer of the uterus is very likely since prior to December, her menstrual periods were regular every month. Uterine fibroids may be a possible cause for heavy flow as well. 4. Recent dyspareunia greater during the past 2 months. Differential diagnosis will include hemorrhagic ovarian cyst nonhemorrhagic ovarian cyst, uterine fibroids, and nongynecologic dyspareunia. Plan: 1. Patient will have blood test today to include CBC and TSH. The order slip was given to the patient for this. 2. She will schedule a pelvic ultrasound. The order slip was given to the patient for this. 3. She will keep a menstrual calendar. 4. I have recommended taking ferrous sulfate 325 mg by mouth daily. 5. She will keep a menstrual calendar. If she is having persistent menometrorrhagia, we will schedule her for an endometrial biopsy. If benign, we can also consider other options such as cyclic progestin treatment as well as endometrial ablation. Time spent with the patient: 35 minutes
[2024-01-23 02:38] LABS: HCT 45.5 % (37.2-46.3); HGB 15.1 g/dL (12.0-15.0); MCH 31.3 pg (27.0-32.0); MCHC 33.2 g/dL (32.0-37.0); MCV 94.4 FL (80.0-97.0); Mean Platelet Volume 11.3 FL (9.5-12.2); NRBC Per 100 WBC 0 X 10*3/uL (0.00-0.01); Platelet Count 291 X 10*3/uL (140-440); RBC 4.82 X 10*6/uL (4.10-5.20); RDW 12.5 % (11.5-14.5); WBC 10.74 X 10*3/uL (4.50-10.00)
--- NOTE | 2024-01-23 14:40 | P.PN ---
Progress Note - Text Progress Note Date: 01/23/24 OUTPATIENT FOLLOW-UP NOTE TEST(S)/RESULTS: Test results from 01/22/2024 include CBC not showing anemia and normal TSH METHOD OF NOTIFICATION: A message with these results was left on the patient's voicemail on 01/23/2024. PATIENT COMMENTS: DIAGNOSIS: No evidence of anemia following episode of hypermenorrhea, normal TSH DISCUSSION: PLAN: Pelvic ultrasound as recommended.
== END ==
LOC: WWCWWP 15:22
PROVIDERS: ATTEND Obstetrics & Gynecology
DX: N92.1 Excessive and frequent menstruation with irregular cycle (principal); N83.202 Unspecified ovarian cyst, left side; D25.9 Leiomyoma of uterus, unspecified; N94.10 Unspecified dyspareunia; F17.200 Nicotine dependence, unspecified, uncomplicated; Z78.0 Asymptomatic menopausal state; Z88.0 Allergy status to penicillin; Z88.1 Allergy status to other antibiotic agents
CPT/HCPCS: 84443; 85027

== ENCOUNTER → 2024-06-16 | Outpatient (CLI) | payer BC ==
[2024-06-16 10:25] VITALS: BP 128/83; PULSE 70; RESP 16; TEMP 98.8
--- NOTE | 2024-06-16 14:14 | P.PAINPG ---
PQRS Measure Charge Sheet Comment: HISTORY OF PRESENT ILLNESS: A 49 yr old female w [id number] at side as a referral from Dr Piper presents today w severe and chronic BL knee pain secondary to BL knee DJD for evaluation. Pt states pain level is provoked at 9 /10 in intensity, constant, localized in the BL knees, achy in character without shooting pain. Pain is provoked by weight bearing activity. Pain is alleviated by PT x 3 wks which started in end of May 2024, heat, ice, medications, topical, use of a knee brace, repositioning and rest . PMH: OA, Asthma, HTN, Hypothyroidism, Vitamin D Deficiency PSH: Cholecystectomy, Colonoscopy/ EGD (2019), Cervical Surgery, R Knee Surgery SH: Daily tobacco use, No ETOH use, No illicit drug use FH: Mo- DM All: See list Meds: See list incl Tyl, BioFreeze REVIEW OF ORGAN SYSTEMS: CONSTITUTIONAL: No fevers or chills. No recent weight loss. NEUROLOGICAL: + numbness and tingling along the distal extremities. No seizure disorders or headaches. MUSCULOSKELETAL: + pain PSYCHIATRIC: Denies current depression or suicidal thoughts. Physical Examinations : Constitutional : Cooperative , not in acute distress . Neurologic : Cranial nerve II to XII intact. No focal neurological deficits. Psychiatric : alert & oriented x 3. Matching mood & appropriate affect. Judgment & insight intact. Musculoskeletal : Cervical Spine Motor strength in the deltoid and biceps: Normal right side. Normal Left side Motor strength biceps and the wrist extensors: Normal right side . Normal left side Motor strength in the triceps muscle: Normal right side. Normal left side Deep tendon reflexes: Normal at the biceps. Normal at Brachioradialis. Normal at triceps Vertebral body tenderness to deep palpation over Cervical facet loading test: positive bilaterally Spurling test: positive bilaterally Neck distraction test: positive bilaterally Pascale sign: positive bilaterally Lumbar spine +Diffuse BL Knee TTP w 1+ peripatellar edema Motor strength lower extremities ,thigh and legs 5/5 Right side , 5/5 Left side Deep tendon reflexes : Normal Knee Jerk. Normal Ankle Jerk Vertebral body tenderness over Mustafa Test positive Lumbar facet Loading Test: positive Right / positive Left Range of motion of the lumbar spine Flexion 30 degrees, extension 10 degrees Straight Leg Raise test: Left/ Right positive at degrees Jose test: positive right / positive left. Severe tenderness over the Sacroiliac joint on the Right / Left sides Gaenslen test: positive bilaterally Seated flexion test: positive bilaterally. Sacral spine : Severe tenderness over the Sacroiliac joint: right side / left side Range of motion: Flexion of the lumbar spine <60 degrees Range of motion: Extension of the lum bar spine <20 degrees Gaenslen's Test positive Jose test: positive right side / left side Thigh Thrust Test Sacral Thrust Test Imaging: X rays from 05/12/24 on file Assessment/ Plan : BL Knee DJD Recommendation of MRI non contrast BL Knees M16.9. All questions answered. I have spent greater than 30 minutes on patient care today. Dr Wayne was available by phone for the evaluation of this patient. The time was used to review the medical records including relevant urine studies and Prescription history (MAPs), review of the available imaging, evaluation and examination of the patient, coordination of care with the medical staff and if applicable referring physicians, as well as creation of the medical record PQRS Narrative: Smoking Status Current some day smoker Home Medications: Ambulatory Orders hydroCHLOROthiazide [Hydrodiuril] 25 mg PO DAILY 06/08/14 Biotin 10,000 mcg PO DAILY 09/24/18 Thyroid, Pork [[place] Thyroid] 30 mg PO DAILY 09/24/18 Ascorbic Acid [Vitamin C] 500 mg PO DAILY 02/02/20 Vitamin B Complex 1 each PO DAILY 02/02/20 Vitamin D (Unknown Dose) 1 tab PO DAILY 02/24/20 Ashwagandha Root Extract [Ashwagandha] 500 mg PO DAILY 06/27/22 Controlled Substance Measures - Controlled Substance Measures Is patient prescribed a controlled substance at discharge?: No
== END ==
LOC: PNWHC3 09:53
PROVIDERS: ATTEND Specialist
DX: M17.0 Bilateral primary osteoarthritis of knee (principal); F17.200 Nicotine dependence, unspecified, uncomplicated; Z88.0 Allergy status to penicillin; Z88.1 Allergy status to other antibiotic agents
CPT/HCPCS: 99211